=== PATIENT | female | born 1940 | race Caucasian/White ===

== ENCOUNTER → 2017-01-21 | Outpatient (CLI) | payer OTHER | LOC: CIMAGING 14:39 | PROVIDERS: ATTEND Internal Medicine | DX: Z12.31 Encounter for screening mammogram for malignant neoplasm of breast (principal) | CPT/HCPCS: G0202 ==

== ENCOUNTER → 2017-06-25 | Outpatient (CLI) | payer OTHER | LOC: FIMAGING 14:33 | PROVIDERS: ATTEND Internal Medicine Rheumatology | DX: Z13.820 Encounter for screening for osteoporosis (principal); M85.80 Other specified disorders of bone density and structure, unspecified site; E07.9 Disorder of thyroid, unspecified ==

== ENCOUNTER → 2018-01-22 | Outpatient (CLI) | payer OTHER | LOC: CIMAGING 14:06 | PROVIDERS: ATTEND Internal Medicine | DX: Z12.31 Encounter for screening mammogram for malignant neoplasm of breast (principal); Z80.3 Family history of malignant neoplasm of breast ==

== ENCOUNTER → 2018-03-09 | Outpatient (CLI) | payer OTHER | LOC: CIMAGING 17:14 | PROVIDERS: ATTEND Internal Medicine | DX: E07.9 Disorder of thyroid, unspecified (principal) | CPT/HCPCS: 76536-PO ==

== ENCOUNTER → 2018-12-10 | Outpatient (CLI) | payer OTHER | LOC: FIMAGING 17:29 | PROVIDERS: ATTEND Internal Medicine Pulmonary Disease | DX: J96.11 Chronic respiratory failure with hypoxia (principal) ==

== ENCOUNTER → 2019-01-24 | Outpatient (CLI) | payer OTHER | LOC: CIMAGING 14:13 | PROVIDERS: ATTEND Internal Medicine | DX: Z12.31 Encounter for screening mammogram for malignant neoplasm of breast (principal) ==

== ENCOUNTER 2019-02-13 12:50 | Inpatient (IN) | payer OTHER ==
--- NOTE | 2019-02-13 13:11 | EDPHY ---
H & P Time Seen by Provider: 02/13/19 13:04 HPI/ROS: Chief complaint. Fatigue, shortness of breath HPI. Patient is an 78-year-old female presents with increased cough and increased shortness of breath. She also tells me shows she is so weak she can' t hardly walk. Symptoms have been present for 3-4 days. She has chronic shortness of breath and normally has 94% saturation on 3 L but now has been running around 90% on her 3 L. Chronic cough but increasing cough. No abdominal pain vomiting or diarrhea. No fever. No chest pain. No urinary symptoms. 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 ROS 10 systems were reviewed and negative with the exception of the elements mentioned in the history of present illness Past Medical/Surgical History: COPD, DJD, hypothyroid, appendectomy, cholecystectomy, hysterectomy Social History: Single, nonsmoker, no alcohol Smoking Status: Former smoker Physical Exam: General Appearance: Alert well-developed female mild distress vital signs are stable. O2 saturation on 3 L 90% Eyes: Pupils equal and round no pallor or injection. ENT, Mouth: Mucous membranes are moist. Respiratory: There are no retractions, lungs are clear to auscultation. Questionable rales left lower lobe Cardiovascular: Regular rate and rhythm. Gastrointestinal: Abdomen is soft and nontender, no masses, bowel sounds normal. Neurological: Awake and alert, sensory and motor exams grossly normal. Skin: Warm and dry, no rashes. Musculoskeletal: Neck is supple nontender. Extremities symmetrical, full range of motion. Psychiatric: Patient is oriented X 3, there is no agitation. Constitutional: Initial Vital Signs Temperature (C) 36.6 C 02/13/19 12:55 Heart Rate 67 02/13/19 12:55 Respiratory Rate 22 H 02/13/19 12:55 Blood Pressure 133/58 H 02/13/19 12:55 O2 Sat (%) 90 L 02/13/19 12:55 O2 Delivery Mode Nasal Cannula O2 (L/minute) 3 Allergies/Adverse Reactions: cortisone [Cortisone] Allergy (Intermediate, Verified 02/13/19 12:59) prednisone [Prednisone] Allergy (Intermediate, Verified 02/13/19 12:59) codeine [Codeine] Allergy (Mild, Verified 02/13/19 12:59) meperidine HCl [From Demerol] Adverse Reaction (Intermediate, Verified 02/13/19 12:59) Vomiting TAPE Allergy (Intermediate, Uncoded 02/13/19 12:59) Home Medications: Medication Instructions Recorded Aspirin [Ecotrin] 325 mg PO HS 10/09/12 Ipratropium/Albuterol [Combivent 1 puffs IH DAILY PRN 10/09/12 Inhaler (RX)] Ipratropium/Albuterol [Duoneb (RX)] 3 ml IH Q3H 10/09/12 Omeprazole Magnesium [Prilosec Otc] 20 mg PO MOWEFR 10/09/12 Polyethylene Glycol 3350 [Miralax 17 gm PO HS 10/09/12 17 gm (OTC)] Simvastatin [Zocor 40 mg (RX)] 40 mg PO DAILY18 10/09/12 Tramadol HCl 50 mg PO HS 10/09/12 celeCOXIB [Celebrex (RX)] 200 mg PO DAILY 10/09/12 diphenhydrAMINE [Benadryl 25 MG 25 mg PO HS 10/09/12 (OTC)] Calcium Carb W/Vit D [Calcium Carb 500 mg PO TID 02/13/19 W/Vit D 500/200 (*)] Cholecalciferol Vit D3 [Vitamin D3 2,000 units PO DAILY@18 02/13/19 (*)] Furosemide [Lasix 40 MG (*)] 40 mg PO DAILY@17 02/13/19 Herbals/Supplements -Info Only 1 ea PO DAILY 02/13/19 Levothyroxine [Synthroid 50 mcg 50 mcg PO HS 02/13/19 (*)] Losartan Potassium [Cozaar 25 mg 25 mg PO DAILY 02/13/19 (*)] Melatonin [Melatonin 5 mg] 5 mg PO HS 02/13/19 Multivitamins [Multivitamin (*)] 1 each PO DAILY 02/13/19 [place]-3 Fatty Acids [Fish Oil 1000 1,000 mg PO BID 02/13/19 mg (*)] Potassium Citrate [Potassium 10 meq PO DAILY 02/13/19 Citrate ER] Medical Decision Making - Diagnostics EKG Interpretation: EKG interpreted by me shows normal sinus rhythm normal interval. Left axis deviation. Left bundle branch block. No significant ST elevation or depression. No arrhythmia. The rate is 68 Imaging Results: Imaging Impressions Chest X-Ray 02/13/19 13:22 Impression: New minimal left basilar atelectasis versus early pneumonia. Chest x-ray interpreted by me shows likely early left lower lobe pneumonia Procedures: Venous access was difficult. Multiple attempts and attempts with ultrasound. Patient eventually does get a PICC line for labs. Given normal saline Sepsis workup ED Course/Re-evaluation: Patient is given DuoNeb updraft. Patient remained stable. She and I discussed treatment plan including recommendation for admission. She expresses understanding and agreement I consulted discussed case with , hospitalist, who agrees to the admission Differential Diagnosis: She has evidence of pneumonia and urinary tract infection. Apparently patient' s calcium is quite elevated. This could represent occult cancer. Maybe the source of her weakness. No evidence for sepsis - Data Points Laboratory Results: 02/13/19 14:35 POC Troponin I 0.02 ng/mL ng/mL (0.00-0.08) Medications Given: Discontinued Medications Albuterol/Ipratropium (Duoneb) 3 ml IH EDNOW ONE Stop: 02/13/19 16:37 Last Admin: 02/13/19 16:57 Dose: Not Given Point of Care Test Results: Chemistry 02/13/19 14:35 POC Troponin I 0.02 ng/mL ng/mL (0.00-0.08) Departure - Departure Disposition: [facility] Inpatient Acute Clinical Impression: Pneumonia Qualifiers: Pneumonia type: due to unspecified organism Laterality: left Lung location: lower lobe of lung Qualified Code(s): J18.1 - Lobar pneumonia, unspecified organism UTI (urinary tract infection) Qualifiers: Urinary tract infection type: site unspecified Hematuria presence: without hematuria Qualified Code(s): N39.0 - Urinary tract infection, site not specified Condition: Good
--- NOTE | 2019-02-13 15:17 | CPEKG ---
Test Reason : OPEN Blood Pressure : / mmHG Vent. Rate : 068 BPM Atrial Rate : 000 BPM P-R Int : 196 ms QRS Dur : 120 ms QT Int : 394 ms P-R-T Axes : 000 020 050 degrees QTc Int : 420 ms Junctional rhythm Incomplete left bundle branch block Confirmed by Tamica Murray ([id number]) on 02/13/2019 3:16:52 PM Referred By: TAMICA MURRAY Confirmed By:Tamica Murray
[2019-02-13] MEDS ORDERED: IPRATROPIUM/ALBUTEROL 3 ML DEYVIAL IH ONE (16:36)
[2019-02-13] MEDS ORDERED: IOPAMIDOL (ISOVUE-300) 100 ML BTL ONE (18:33)
[2019-02-13 19:22] LABS: PLATELET COUNT 271 10^3/uL (150-400)
[2019-02-13 19:54] LABS: INR 0.97 (0.83-1.16); PROTIME(PATIENT) 12.5 SEC (12.0-15.0)
[2019-02-13] MEDS ORDERED: NS 1,000 ML IV ONE (20:23)
[2019-02-13] MEDS ORDERED: POLYETHYLENE GLYCOL 3350 17 GM PKT PO SCH (21:00)
[2019-02-13] MEDS ORDERED: traMADol 50 MG TAB PO PRN (21:48)
[2019-02-13] MEDS ORDERED: ONDANSETRON 4 MG/2 ML VIAL IVP PRN (21:48)
[2019-02-13] MEDS: HEPARIN 5,000 UNIT/0.5 ML INJ SC SCH (22:59)
[2019-02-13] MEDS: MELATONIN 3 MG TAB PO SCH (23:00)
[2019-02-13] MEDS: LEVOTHYROXINE 50 MCG TAB PO SCH (23:00)
[2019-02-13] MEDS ORDERED: ZOLEDRONIC ACID 4 MG in D5W 100 ML IV ONE (23:00)
[2019-02-13] MEDS: traMADol 50 MG TAB PO SCH (23:01)
[2019-02-13] MEDS: NS 1,000 ML IV SCH (23:03)
--- NOTE | 2019-02-13 23:07 | GHP ---
[f rep st] HISTORY AND PHYSICAL DATE OF ADMISSION: 02/13/2019 CHIEF COMPLAINT: Dizziness. HISTORY OF PRESENT ILLNESS: The patient is an 78-year-old female, who has gotten acutely weak in the last 3 to 4 days to the point where she can barely walk. She is very fatigued. She says she walks like she is drunk. She is shaky, having to hold onto the martinez. She is dizzy. She has lost weight; however, she says that is intentional. She has been trying to eat less. She had a virtual colonosc opy in 2013 that she said was okay, although she describes recently being diagnosed with a rectal tyra wth for which she has to take MiraLAX to keep her stools very loose around this small rectal opening. She does not know what the etiology is of the rectal growth and denies that it was never biopsied. She denies any abdominal pain. She has had a lower appetite than normal. She does drink 1 small gl ass of milk per day and does occasionally take Tums, although she denies that she takes them daily. In the emergency room, she was diagnosed with severe hypercalcemia with a calcium of 18.6. PAST MEDICAL HISTORY: 1. COPD on 3 L. 2. 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 3. Basal cell cancer of the nose. 4. Dilated cardiomyopathy. She follows with Dr. Rubalcava. PAST SURGICAL HISTORY: Appendectomy, cholecystectomy, hysterectomy, multiple breast biopsies that we re benign, back and knee surgeries. MEDICATIONS: Please see computerized record for a full detailed list. ALLERGIES: Prednisone. SOCIAL HISTORY: Quit smoking in 1988. She has not had any alcohol for the last 2 years. She thinks she might have been a little heavy of a drinker in the past, but really denied that she has ever had an alcohol problem. Lives with her daughter in her town home. REVIEW OF SYSTEMS: A complete review of systems was obtained and negative regarding constitutional, HEENT, GI, pulmonary, cardiovascular, , hematology, skin, musculoskeletal, endocrine, and psychiatr ic, except for positives and negatives as in HPI. FAMILY HISTORY: Reviewed, and noncontributory to presenting complaint. PHYSICAL EXAMINATION: GENERAL: Well-developed, well-nourished female, in no acute distress. VITAL SIGNS: Temperature is 36.6, pulse 67, respirations 22, blood pressure 133/58, saturating 90% o n 3 L. HEENT: Eyes: Normal conjunctivae. Pupils are equal, round and react to light. ENT: Normal ears a nd nose. Hearing intact. Normal lips and teeth. Oropharynx is moist. NECK: Trachea is midline. No thyromegaly. CHEST: Normal respiratory effort. Lungs are clear to auscultation bilaterally. CARDIOVASCULAR SYSTEM: Regular rate and rhythm. No murmur. No lower extremity edema. ABDOMEN: Soft, nontender. No hepatosplenomegaly. SKIN: Warm, dry, and intact without no rash. She does have a skin ulceration on her nose. MUSCULOSKELETAL: No cyanosis or clubbing. Strength is 5/5 upper and lower extremities. NEUROLOGIC: Cranial nerves are intact. Normal sensation to light touch. PSYCHIATRIC: She is alert and oriented x3. Normal mood and affect. Normal judgment and insight. N ormal memory. LABORATORY DATA: White count 8.09, hematocrit 32.6, platelets 271. Sodium 127, potassium 3.5, chlor christy 86, bicarb 37, BUN 41, creatinine 2.6, glucose 106. Lactate is 1.2. Calcium is 18.6. IMAGING DATA: EKG, viewed by me, my personal interpretation is normal sinus rhythm with an incomplet e bundle branch block. Chest x-ray is mostly unremarkable, maybe a little atelectasis in the left ba se. This case was discussed with Dr. Murray. There was a prolonged lag between decision for admission. When laboratory studies were available due to poor IV access, they put a PICC line in, in the emerge ncy room. ASSESSMENT AND PLAN: 1. Critical hypercalcemia. Differential diagnosis is hyperparathyroidism versus malignancy. We narendra l check a parathyroid hormone. We will check SPEP and UPEP. We will hydrate with IV fluids. We narendra l initiate her on subcutaneous calcitonin as well as giving her a dose of IV Zometa. We will hold al l of her oral and vitamin D calcium supplements. Review of old chart reveals her calcium was normal just 2 months ago. We will likely need to rule out malignancy, anticipating that her parathyroid hor ceci will be unrevealing. I think she needs a CT scan of her abdomen and pelvis as will be discussed below. Given her acute renal failure, however, we will see if this can be reversed as we would get a higher yield CT scan if we are able to give IV contrast. 2. Acute renal failure. We will hydrate her with IV fluids. I suspect this is due to hypercalcemia . We will check a renal ultrasound. We will hold her Celebrex, Lasix and losartan. 3. Mesenteric mass. In review of her old chart, I found a CT scan from 2015 that showed a mesenteri c mass, partially calcified, getting larger, with mesenteric lymph nodes. The patient denies knowled ge of this mass. Differential diagnosis at that time was carcinoid tumor versus lymphoma versus sarc oid versus sarcoma. As discussed above, especially given our current suspicion for hypercalcemia of malignancy, I think she needs a repeat CT scan of the abdomen and pelvis when her creatinine is impro kimberley. 4. Reported rectal growth. She says she takes MiraLAX to stool around a rectal mass, although she d enies that it was ever biopsied or if she knows what the growth consists of. For tonight, I will glory ck an abdominal x-ray to rule out obstruction. Once her electrolytes are a little more stable, recom mend CT scan of the abdomen and pelvis as above. 5. Chronic obstructive pulmonary disease with chronic respiratory failure. I believe she is at base line. 6. Dilated cardiomyopathy. I am giving fairly aggressive IV fluids for her hypercalcemia. We will need to watch her volume status closely. There are no echocardiograms currently in our system. We w ill check an echocardiogram. She follows with Dr. Rubalcava. 7. Cardiac or respiratory emergency status is full. 8. Admission status. We will admit to inpatient as she is medically complex and I anticipate greate r than 2 midnights. 9. Deep vein thrombosis prophylaxis. She is high risk. We will place her on subcutaneous heparin. /[id number]/MODL
[2019-02-13] MEDS: CALCITONIN 200 UNITS/ML SYR SC SCH (23:50)
[2019-02-13] MEDS: IPRATROPIUM/ALBUTEROL 3 ML DEYVIAL IH SCH (23:58)
[2019-02-14] MEDS: IPRATROPIUM/ALBUTEROL 3 ML DEYVIAL IH SCH ×8 (00:07→20:36)
[2019-02-14] MEDS: GUAIFENESIN/DM 10 ML UDCUP PO PRN ×2 (01:05→18:15)
[2019-02-14] MEDS: CEPACOL LOZENGE PO PRN (02:16)
[2019-02-14] MEDS: BENZONATATE 100 MG CAP PO PRN (02:16)
[2019-02-14] MEDS: IPRATROPIUM/ALBUTEROL 4GM MDI IH PRN ×3 (02:16→08:24)
[2019-02-14 05:24] LABS: PLATELET COUNT 249 10^3/uL (150-400)
[2019-02-14] MEDS: NS 1,000 ML IV SCH ×3 (06:02→18:17)
[2019-02-14] MEDS: HEPARIN 5,000 UNIT/0.5 ML INJ SC SCH ×3 (06:02→21:54)
[2019-02-14] MEDS ORDERED: POTASSIUM CL 20 MEQ TAB PO ONE (08:22)
--- NOTE | 2019-02-14 08:33 | HOSPPROG ---
Hospitalist Progress Note Assessment/Plan: 78 female presented with dizziness, dysequilibrium and fatigue, admitted with serum Ca >18. Hypercalcemia - concern for malignancy with low PTH and h/o mesenteric mass. She is s/p IV Zometa. Also receiving IVF's and calcitonin. -cont IVF's and calcitonin -recheck Ca this afternoon and in am GURU - likely 2/2 above - Cr trending down slightly with aggressive IVF's -cont IVF's -holding celebrex, lasix, losartan -renal u/s pending -repeat labs this afternoon Dilated cardiomyopathy - echo today to eval LV function as she is requiring aggressive IVF's for above issues Mesenteric mass - reviewed 12/2015 CT, which showed calcified mass, possibly carcinoid tumor, lymphoma (reported said "recurrent" but she denies h/o lymphoma ) or sarcoma. She says she talked to Dr. Scales about this in 2015 and surgical biopsy was deferred given her poor health. -CT abd/pelvis is recommended and would potentially proceed today without contrast to evaluate progression, but pt refuses imaging, see below -will readdress when Ca lower, mentation improved and renal function improved as ideally would get imaging with contrast COPD - stable, on 3 LPM baseline -cont home meds Hypokalemia - replace cautiously with elevated Cr Metabolic alkalosis Goals of care - discussed with pt that the hypercalcemia could be related to malignancy and re-imaging her abdomen is the next step. She repeatedly states "I don't want to do anything". She says she wouldn't want treatment even if she had cancer. She doesn't want to know what her imaging shows. She hopes her calcium will come down with "anti-calcium" meds. Regarding code status, she wants to stay full code, which isn't terribly consistent with her wishes to not have other w/u and treatment for possible malignancy. Will keep all this in mind, but would like to get her calcium down and readdress these issues as her cognitive function is likely affected by the hypercalcemia. Will continue the conversation when she feels better and calcium lower. Full code Dispo - cont inpt Subjective: Pt is tired, says she really doesn't feel any better despite Ca trending down. Still a little dizzy and weak. Denies CP. She is SOB at baseline with O2 dept COPD, but denies orthoponea or PND. Says she doesn't want further investigation of her hypercalcemia at this time. Objective: Vital Signs Temp Pulse Resp BP Pulse Ox 36.7 C 70 17 128/65 H 96 02/14/19 07:17 02/14/19 07:17 02/14/19 07:17 02/14/19 07:17 02/14/19 07:17 Laboratory Results 02/14/19 05:00 02/14/19 05:00 02/13/19 02/14/19 02/15/19 05:59 05:59 05:59 Intake Total 3600 Output Total 1300 Balance 2300 PT 12.5 SEC (12.0-15.0) 02/13/19 19:00 INR 0.97 (0.83-1.16) 02/13/19 19:00 - Physical Exam Constitutional: no apparent distress Eyes: PERRL Ears, Nose, Mouth, Throat: moist mucous membranes Cardiovascular: regular rate and rhythym Respiratory: no respiratory distress, clear to auscultation Gastrointestinal: normoactive bowel sounds, soft, non-tender abdomen Skin: warm Musculoskeletal: generalized weakness Neurologic: AAOx3 Psychiatric: interacting appropriately ICD10 Worksheet Patient Problems: Problems Problem Status Onset Pneumonia Acute UTI (urinary tract infection) Acute
[2019-02-14] MEDS: PANTOPRAZOLE SODIUM 40 MG TAB PO SCH (09:28)
[2019-02-14] MEDS: guaiFENesin 600 MG TAB.ER PO SCH ×3 (09:28→21:54)
--- NOTE | 2019-02-14 10:31 | PDMN ---
Medical Necessity Medical necessity: [facility] M326 Acute Renal Failure, 3 days: 78 yo w/ acute weakness , fatigue and dizziness. Eval reveals acute renal fx w/ critical hypercalcemia poss r/t hyperparathyroidism vs. malignancy. Pt has hx of mesenteric mass from 2016 scan concerning for malignancy w/ no f/u since. Ca+18.6, Na+127, Cr 2.6. PICC placement, IVF and calcitronin, serial labs. BC & urine cx pending. Repeat CT scan. Renal U/S. Echo. Anticipate>2MN for medical complexity. Meets [facility] IP criteria for ARF w/ clinically sig electrolyte abnormality, ongoing metabolic alkalosis and unstable and uncertain clinical situation (etiology unclear). Hx COPD on 3L, cardiomyopathy
[2019-02-14] MEDS: CALCITONIN 200 UNITS/ML SYR SC SCH ×2 (10:33→21:53)
--- NOTE | 2019-02-14 12:55 | ECHO ---
[email or web address] [address] [address] Main: [phone] Echocardiography Examination Transthoracic Name: CHRISTINA THOMAS MR#: [id number] Study Date: 02/14/2019 Study Time: 09:01 AM Date of : 1940 Age: 78 year(s) Height: 157.5 cm (62 in.) Weight: 64.41 kg (142 lb.) BSA: 1.65 m2 Gender: Female Examination: Echo Contrast: Image Quality: Rhythm: Normal sinus rhythm Heart Rate: 70 bpm BP: 117 mmHg/68 mmHg Indication: Pneumonia, Murmur Procedure Staff Referring Physician: Supervisor Porcelain Department: Andres Ledezma RDCS Reading Physician: Donaldo Lamas MD Requesting Provider: Ordering Physician: Leandra Sellers Indication: Pneumonia, Murmur Measurements Chambers AV/MV Label Value Normal Value Label Value Normal Value LVOT Vmax 0.8 m/s (0.7m/s - 1.1m/s) AV PGmax 31 mmHg LVOTd 1.9 cm (1.8cm - 2cm) AV PGmean 16 mmHg LVOT VTI 24.4 cm (18cm - 22cm) AV Vmax 2.77 m/s LVDd, 2D 3.9 cm (3.9cm - 5.3cm) ARNOLDO (Vmax) 0.8 cm2 LVDs, 2D 2.2 cm (2.1cm - 4cm) ARNOLDO (VTI) 1.1 cm2 IVSd, 2D 0.8 cm (0.6cm - 1.1cm) MV E Vmax 1.08 m/s LVPWd, 2D 1 cm MV A Vmax 1.18 m/s LVEF, 2D 75 % (54% - 74%) MV E/A 0.92 LVOT PGmean 1 mmHg MV E/E' lateral 19.1 LVOT Vmean 0.51 m/s MV E/E' septal 15.4 (0.45 - 1.25) RVDd, 2D 1.9 cm (1.9cm - 3.8cm) MV E' septal 0.07 m/s LA Volume, BP 54 ml (22ml - 52ml) MV E' lateral 0.06 m/s LADs, 2D 2.6 cm (2.7cm - 3.8cm) MV E/E' mean 16.62 LAESV index, BP 32.7 ml/m2 MV E' mean 0.06 m/s Additional Vessels TV/PV Label Value Normal Value Label Value Normal Value AoRoot, MM 3.2 cm (2.2cm - 3.7cm) PV PGmax 7 mmHg PV Vmax, Caliper 1.28 m/s (0.6m/s - 0.9m/s) Patient: CHRISTINA THOMAS Study Date: 02/14/2019 Page 1 of 2 09:01 AM Conclusions Left Ventricle: Normal global systolic left ventricular function. EF range is estimated at 65 % - 70 %. Right Ventricle: Right ventricular systolic function is normal. Mitral Valve: No mitral regurgitation. There is mild mitral thickening. Aortic Valve: There is mild aortic stenosis. Aortic leaflets exhibit moderate calcification. Findings Murmur due to mild aortic stenosis. Left Ventricle: Normal global systolic left ventricular function. EF range is estimated at 65 % - 70 %. Left ventricle wall thickness is normal. There are no regional wall motion abnormalities. Grade I Diastolic Dysfunction. Right Ventricle: Normal size right ventricle. Right ventricular systolic function is normal. Left Atrium: The left atrium is normal in size. Right Atrium: The right atrium is normal in size. Mitral Valve: No mitral regurgitation. No mitral valve stenosis. There is mild mitral calcification. There is mild mitral thickening. Aortic Valve: Trivial aortic regurgitation is present. There is mild aortic stenosis. Aortic leaflets exhibit moderate calcification. Tricuspid Valve: Tricuspid valve leaflets are structurally normal. No tricuspid regurgitation. Pulmonic Valve: Pulmonic leaflets are normal in appearance and function. No pulmonic valve regurgitation is evident. Aorta: The aorta is normal. The aortic root size in M-mode measures 3.2 cm. Aorta Measurements AoRoot, MM is 3.2 cm. Pericardium: No pericardial effusion. Exam Details Procedure Ordered: Echo (No Signature Object) Patient: CHRISTINA THOMAS Study Date: 02/14/2019 Page 2 of 2 09:01 AM [id number]
[2019-02-14] MEDS: NON-FORMULARY NEW DRUG (Tiotropium Br/Olodaterol Hcl [Stiolto Respimat Inhal Spray] 2 PUFF PO SCH (13:20)
--- NOTE | 2019-02-14 14:17 | ASMTCMCOM ---
CM Note CM Note Notes: Pt with co-morbidities including COPD, GURU, in with pneumonia. Pt calcium is high, pt does not want workup of this and she has a mesenteric mass, see MD note. The high calcium is causing pt to have some confusion. OT rec SNF, PT eval on hold while calcium high. CM to follow for d/c planning. D/c plan is TBD Date Signed: 02/14/2019 02:17 PM Electronically Signed By:BETO Felipe
[2019-02-14] MEDS: ALBUTEROL 60 PUFFS/8 GM MDI IH PRN (17:01)
[2019-02-14] MEDS ORDERED: POTASSIUM CL 20 MEQ/15 ML UDCUP PO ONE (17:16)
[2019-02-14] MEDS: ATORVASTATIN CALCIUM 20 MG TAB PO SCH (18:15)
[2019-02-14] MEDS: ASPIRIN EC 325 MG TAB PO SCH (21:52)
[2019-02-14] MEDS: diphenhydrAMINE 25 MG CAP PO SCH (21:54)
[2019-02-14] MEDS: LEVOTHYROXINE 50 MCG TAB PO SCH (21:54)
[2019-02-14] MEDS: MELATONIN 3 MG TAB PO SCH (21:55)
[2019-02-14] MEDS: traMADol 50 MG TAB PO SCH (21:56)
[2019-02-15] MEDS: ALBUTEROL 60 PUFFS/8 GM MDI IH PRN (00:19)
[2019-02-15] MEDS: NS 1,000 ML IV SCH ×4 (02:49→22:02)
[2019-02-15] MEDS: IPRATROPIUM/ALBUTEROL 3 ML DEYVIAL IH SCH ×4 (05:30→22:00)
[2019-02-15] MEDS: HEPARIN 5,000 UNIT/0.5 ML INJ SC SCH ×3 (05:41→21:00)
[2019-02-15] MEDS ORDERED: POTASSIUM CL 20 MEQ/15 ML UDCUP PO ONE (07:26)
[2019-02-15] MEDS: guaiFENesin 600 MG TAB.ER PO SCH ×2 (08:58→20:45)
[2019-02-15] MEDS: IPRATROPIUM/ALBUTEROL 4GM MDI IH PRN (09:26)
[2019-02-15] MEDS: ACETAMINOPHEN 325 MG TAB PO PRN ×2 (09:39→16:24)
[2019-02-15] MEDS: CALCITONIN 200 UNITS/ML SYR SC SCH (09:39)
--- NOTE | 2019-02-15 11:13 | ASMTCMCOM ---
CM Note CM Note Notes: Met with patient who is groggy. She tells me she lives at home and her daughter lives with her. OT recommending SNF and PT pending. CM to follow for needs. Plan: TBD Date Signed: 02/15/2019 11:13 AM Electronically Signed By:Jannie Casanova RN
--- NOTE | 2019-02-15 11:39 | HOSPPROG ---
Hospitalist Progress Note Assessment/Plan: 78 female presented with dizziness, dysequilibrium and fatigue, admitted with serum Ca >18. Hypercalcemia - concern for malignancy with low PTH and h/o mesenteric mass. She is s/p IV Zometa and 4 doses calcitonin. Ca 18.6 --> 12. -cont IVF's, will decrease rate a bit -cont to trend Ca GURU - likely 2/2 above - Cr slowly trending down with IVF's -cont IVF's, decrease rate to 100/hr -cont holding celebrex, lasix, losartan -renal u/s showed left kidney lesion, o/w unremarkable Left kidney lesion - will evaluate further with CT if pt agreeable Dilated cardiomyopathy - echo reviewed: nl EF, grade 1 diast dysfunction, mild -back off on IVF's to avoid volume overload Mesenteric mass - reviewed 12/2015 CT, which showed calcified mass, possibly carcinoid tumor, lymphoma (reported said "recurrent" but she denies h/o lymphoma ) or sarcoma. She says she talked to Dr. Scales about this in 2016 and surgical biopsy was deferred given her poor health. -CT abd/pelvis is recommended and would potentially proceed today without contrast to evaluate progression, but pt continues to refuse imaging -will readdress when Ca lower, mentation improved and renal function improved as ideally would get imaging with contrast COPD - remains on baseline O2 of 3 LPM, but increased wheezing noted today -discussed starting prednisone, but pt says she has reaction to prednisone and cannot take it -cont duonebs, prn albuterol nebs Hypokalemia - replace cautiously with elevated Cr Metabolic alkalosis Goals of care - readdressed goals of care with daughter Mariana at bedside who is MDPOA. Pt seems decisional, but also seems to have some denial and avoidance / anger. She continues to state she "doesn't want anything done". When I try to follow up with next steps in terms of goals of care re: code status and possibly considering hospice if she doesn't want treatment for potential cancer , she becomes flustered and says she doesn't want to talk about it. Says she wants to be resuscitated, though that is not consistent with her other wishes to defer further imaging and treatment. Daughter acknowledges that pt has stated in past she would not want to be kept alive on machines. Pt unable make decisions currently. She does agree to palliative care consult to assist with goals of care and to readdress code status. Additional 30 minutes at bedside addressing advanced care planning with pt and daughter. Full code Dispo - cont inpt Subjective: Pt doing ok, says not feeling much better, currently getting nebulizer. Denies significant pain. No CP. She is SOB and wheezing a bit this am. No fevers. Tremor persists, but improving. Continues to state she does not want anything done and refuses CT scan. Objective: Vital Signs Temp Pulse Resp BP Pulse Ox 37.3 C 78 18 148/67 H 100 02/15/19 07:45 02/15/19 07:45 02/15/19 07:45 02/15/19 07:45 02/15/19 07:45 Microbiology 02/15/19 01:00 Gastrointestinal Tract Panel (PCR) - Final Stool No Organism Detected By Pcr Laboratory Results 02/14/19 05:00 02/15/19 04:40 02/14/19 02/15/19 02/16/19 05:59 05:59 05:59 Intake Total 3600 5650 Output Total 1300 600 300 Balance 2300 5050 -300 PT 12.5 SEC (12.0-15.0) 02/13/19 19:00 INR 0.97 (0.83-1.16) 02/13/19 19:00 - Physical Exam Constitutional: no apparent distress Eyes: PERRL Ears, Nose, Mouth, Throat: moist mucous membranes Cardiovascular: regular rate and rhythym Respiratory: no respiratory distress, reduced air movement, expiratory wheeze Gastrointestinal: normoactive bowel sounds, soft, non-tender abdomen Skin: warm Musculoskeletal: full muscle strength Neurologic: AAOx3 Psychiatric: interacting appropriately, anxious, poor insight ICD10 Worksheet Patient Problems: Problems Problem Status Onset Pneumonia Acute UTI (urinary tract infection) Acute
[2019-02-15] MEDS: NON-FORMULARY NEW DRUG (Tiotropium Br/Olodaterol Hcl [Stiolto Respimat Inhal Spray] 2 PUFF PO SCH (12:11)
[2019-02-15] MEDS: traMADol 50 MG TAB PO PRN (13:41)
[2019-02-15] MEDS ORDERED: POTASSIUM CL 20 MEQ TAB PO ONE (16:09)
[2019-02-15] MEDS: ATORVASTATIN CALCIUM 20 MG TAB PO SCH (17:37)
[2019-02-15] MEDS: diphenhydrAMINE 25 MG CAP PO SCH (20:45)
[2019-02-15] MEDS: LEVOTHYROXINE 50 MCG TAB PO SCH (20:45)
[2019-02-15] MEDS: ASPIRIN EC 325 MG TAB PO SCH (20:45)
[2019-02-15] MEDS: traMADol 50 MG TAB PO SCH (20:46)
[2019-02-15] MEDS: MELATONIN 3 MG TAB PO SCH (20:46)
[2019-02-16] MEDS: IPRATROPIUM/ALBUTEROL 3 ML DEYVIAL IH SCH ×5 (03:19→20:30)
[2019-02-16] MEDS: ALTEPLASE 2 MG VIAL IVP PRN (04:51)
[2019-02-16] MEDS: HEPARIN 5,000 UNIT/0.5 ML INJ SC SCH ×3 (05:30→21:18)
--- NOTE | 2019-02-16 09:14 | HOSPPROG ---
Hospitalist Progress Note Assessment/Plan: 78 female presented with dizziness, dysequilibrium and fatigue, admitted with serum Ca >18. Hypercalcemia - concern for malignancy with low PTH and h/o mesenteric mass. She is s/p IV Zometa and 4 doses calcitonin. Ca 18.6 --> 10. -cont IVF's, will decrease rate -cont to trend Ca -CT abd/pelvis today as below GURU - likely 2/2 above - Cr 2.6 on arrival, down to 2.1 with IVF's, now trending back up to 2.3. Lytes ok. U/S without obstruction, though kidney lesion noted -check urine Na, urine Cr to calculate FeNa -cont IVF's, decrease rate to 75/hr -cont holding celebrex, lasix, losartan -renal consult requested Left kidney lesion - will evaluate further with CT Dilated cardiomyopathy - echo reviewed: nl EF, grade 1 diast dysfunction, mild -back off on IVF's to avoid volume overload Mesenteric mass - reviewed 12/2015 CT, which showed calcified mass, possibly carcinoid tumor, lymphoma or sarcoma. She says she talked to Dr. Scales about this in 2016 and surgical biopsy was deferred given her poor health. -Pt now agrees to CT, will obtain without contrast due to elevated Cr COPD - remains on baseline O2 of 3 LPM, no e/o exacerbation -cont duonebs, prn albuterol nebs Hypokalemia - better, replace cautiously with elevated Cr Metabolic alkalosis - resolved Goals of care - the past 2 days, pt has been firm that she doesn't want anything done, refusing CT imaging and stating she would not want treatment even if she had cancer. Now that her Ca has normalized, she is more open to discussion about further investigation and agrees to CT scan to evaluate mesenteric mass. Will start with imaging to determine if biopsy is possible and involve oncology if imaging raises more suspicion for malignancy. Palliative care consult today to assist with goals of care. Pt agreeable to this. Full code Dispo - cont inpt Subjective: Pt more friendly today, more open to discussion about imaging and next steps in determining if there is a malignancy. Her breathing is at baseline. Denies CP. No fevers/chills. A little pain in her abdomen. Objective: Vital Signs Temp Pulse Resp BP Pulse Ox 36.8 C 74 18 116/64 98 02/16/19 08:00 02/16/19 08:00 02/16/19 08:00 02/16/19 08:00 02/16/19 08:00 Microbiology 02/15/19 01:00 Gastrointestinal Tract Panel (PCR) - Final Stool No Organism Detected By Pcr Laboratory Results 02/14/19 05:00 02/16/19 04:43 02/15/19 02/16/19 02/17/19 05:59 05:59 05:59 Intake Total 5650 100 1000 Output Total 600 1050 Balance 5050 -950 1000 PT 12.5 SEC (12.0-15.0) 02/13/19 19:00 INR 0.97 (0.83-1.16) 02/13/19 19:00 - Physical Exam Constitutional: no apparent distress Eyes: PERRL Ears, Nose, Mouth, Throat: moist mucous membranes Cardiovascular: regular rate and rhythym Respiratory: no respiratory distress, reduced air movement, expiratory wheeze Gastrointestinal: normoactive bowel sounds, soft, non-tender abdomen Skin: warm Musculoskeletal: full muscle strength Neurologic: AAOx3 Psychiatric: interacting appropriately ICD10 Worksheet Patient Problems: Problems Problem Status Onset Pneumonia Acute UTI (urinary tract infection) Acute
[2019-02-16] MEDS ORDERED: POTASSIUM CL 20 MEQ TAB PO ONE (09:18)
[2019-02-16] MEDS: PANTOPRAZOLE SODIUM 40 MG TAB PO SCH (10:16)
[2019-02-16] MEDS: guaiFENesin 600 MG TAB.ER PO SCH ×2 (10:17→21:19)
[2019-02-16] MEDS: NON-FORMULARY NEW DRUG (Tiotropium Br/Olodaterol Hcl [Stiolto Respimat Inhal Spray] 2 PUFF PO SCH (10:31)
[2019-02-16] MEDS: IPRATROPIUM/ALBUTEROL 4GM MDI IH PRN ×2 (12:27→20:08)
[2019-02-16] MEDS: NS 1,000 ML IV SCH ×2 (16:32→23:06)
[2019-02-16] MEDS: ATORVASTATIN CALCIUM 20 MG TAB PO SCH (17:51)
--- NOTE | 2019-02-16 21:16 | GCON ---
[f rep st] CONSULTATION DATE OF CONSULTATION: 02/16/2019 REASON FOR CONSULTATION: Opinion regarding acute kidney injury. HISTORY OF PRESENT ILLNESS: The patient is a very pleasant 78-year-old female with known stage 3 chr onic kidney disease with baseline serum creatinine between 1.5 and 1.6 dating back a couple of years. She also has a known abdominal/mesenteric mass that has been inoperable in the past. The patient s aid on Thursday she started feeling very "lousy with shaking and discoordination." [facility], and was noted to have acute kidney injury and markedly elevated seru m calcium at greater than 18. She was admitted to the hospital. Therapies were initiated, and over the course of the past 3 days, her serum creatinine has improved a bit, down to 2.3, but her calcium has now come back down to 10.3. She says she lives independently. She has not been having fevers, c hills, nausea, vomiting, chest pain, or shortness of breath. She does have a chronic cough with some sputum production. No hemoptysis, hematemesis, epistaxis. She did have some abdominal cramping. N o diarrhea, melena, hematochezia, blurry vision, double vision, headache, orthopnea, paroxysmal noctu rnal dyspnea, palpitations, or syncope. She does have chronic lower extremity edema. PAST MEDICAL HISTORY: Significant for: 1. Chronic kidney disease, stage 3, with a baseline creatinine between 1.5 and 1.6 dating back a cou ple of years. 2. COPD. 3. DJD. 4. Hypothyroidism. 5. Status post appendectomy. 6. Status post cholecystectomy. 7. Status post hysterectomy. ALLERGIES: To steroids, tape, Demerol, and codeine. CURRENT MEDICATIONS: Include: 1. Albuterol. 2. Combivent. 3. Aspirin 325 mg daily. 4. Lipitor 20 mg daily. 5. Heparin. 6. Protonix 40 mg on Thursday, Thursday, and Thursday. 7. Normal saline at 100 cc/hour. 8. Tramadol. 9. She was taking Celebrex 200 mg a day at home, as well as herbal supplements and losartan. FAMILY HISTORY: Negative for renal failure. SOCIAL HISTORY: She is . She has a daughter who lives with her. She quit smoking in 1988 w hen a carton of cigarettes went to 10 dollars. She does not use alcohol, IV or recreational drugs. 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 REVIEW OF SYSTEMS: A complete 12-point review of systems was performed with pertinent positives and negatives as per previous sections. PHYSICAL EXAMINATION: VITAL SIGNS: Temperature is 36.7 degrees, blood pressure 137/64, respirations 20, pulse 84. Urine output 1.1 L so far today. GENERAL: She is awake, alert, cooperative, anxious about her recent CT scan results, but in no acute distress. HEENT: Pupils are reactive to light. Extraocular movements are intact. Mucous membranes are moist. She does have a basal cell carcinoma on her nose. NECK: No lymphadenopathy or thyromegaly. HEART: Regular. The apex tends to be in he r epigastrium. She has a grade 1/6 systolic murmur. No rub. No S3. LUNGS: No rhonchi. She does have some end-expiratory wheezes. ABDOMEN: Bowel sounds are positive. Soft, nontender, nondistende d. No obvious organomegaly, masses, or bruits. EXTREMITIES: Positive for edema. No cyanosis or cl ubbing. NEUROLOGIC: No asterixis. SKIN: No unusual rashes or lesions other than the basal cell ca rcinoma on her nose. LYMPH: No palpable lymphadenopathy or lymphedema. MUSCULOSKELETAL: No effusi ons or tenderness. LABORATORY: WBC 8.8, hemoglobin 10.2, hematocrit 30, platelet count 249,000. Serum sodium 134, pota ssium 3.5, chloride 107, CO2 22, BUN 32, creatinine 2.3, glucose 82. Calcium 10.3, down from 12.1 ye sterday, 15.1 the day before, and 18.1 the day prior to that. SPEP is pending. PTH and PTH-related peptide are yet pending. Urine sodium was 53. Urine creatinine 20. Echocardiogram showed an ejection fraction of 65% to 70%. No left ventricular hypertrophy. No wall motion abnormalities. Renal ultrasound: Right kidney was 11 cm and left 8.7 cm. Urine culture is positive for Pseudomonas aeruginosa; however, it appears to be a contaminant. IMPRESSION AND PLAN: 1. Life-threatening hypercalcemia with a calcium of greater than 18 on admission, now back down to 1 0.3. 2. Acute kidney injury, likely due to acute tubular necrosis in conjunction with her hypercalcemia. 3. Serologic workup is underway. 4. CT scan of the abdomen and pelvis was done today without contrast. I suspect the mesenteric mass that was inoperable prior may be the culprit for her hypercalcemia. 5. Continue to follow her calcium levels. 6. Await other lab and x-ray data. 7. All questions were answered to the patient's satisfaction. Thank you for allowing me to participate in the care of your patient. If there are any questions, pl ease do not hesitate to contact us. We will be following along with you. /[id number]/MODL
[2019-02-16] MEDS: LEVOTHYROXINE 50 MCG TAB PO SCH (21:19)
[2019-02-16] MEDS: ASPIRIN EC 325 MG TAB PO SCH (21:19)
[2019-02-16] MEDS: MELATONIN 3 MG TAB PO SCH (21:19)
[2019-02-16] MEDS: diphenhydrAMINE 25 MG CAP PO SCH (21:20)
[2019-02-16] MEDS: traMADol 50 MG TAB PO SCH (21:20)
[2019-02-17] MEDS: LORazepam 2 MG/ML INJ IVP PRN (00:01)
[2019-02-17] MEDS: ALBUTEROL 60 PUFFS/8 GM MDI IH PRN (02:09)
[2019-02-17] MEDS: IPRATROPIUM/ALBUTEROL 4GM MDI IH PRN (04:53)
[2019-02-17] MEDS: ALTEPLASE 2 MG VIAL IVP PRN (05:01)
[2019-02-17] MEDS: ACETAMINOPHEN 325 MG TAB PO PRN ×2 (05:57→17:14)
[2019-02-17] MEDS: HEPARIN 5,000 UNIT/0.5 ML INJ SC SCH ×3 (05:57→21:56)
[2019-02-17] MEDS: IPRATROPIUM/ALBUTEROL 3 ML DEYVIAL IH SCH ×5 (06:02→22:35)
[2019-02-17] MEDS: CEPACOL LOZENGE PO PRN ×2 (06:33→09:25)
[2019-02-17] MEDS: AZITHROMYCIN IV 500 MG in NS 250 ML IV SCH (06:58)
[2019-02-17 07:04] LABS: PLATELET COUNT 209 10^3/uL (150-400)
[2019-02-17] MEDS: guaiFENesin 600 MG TAB.ER PO SCH ×2 (07:59→21:57)
[2019-02-17] MEDS: NON-FORMULARY NEW DRUG (Tiotropium Br/Olodaterol Hcl [Stiolto Respimat Inhal Spray] 2 PUFF PO SCH (08:22)
--- NOTE | 2019-02-17 10:07 | SOAPPROG ---
SOAP Progress Note Assessment/Plan: Assessment/Plan: 78 y/o F with a known h/o of a nonresectable mesenteric mass presented with hypercalcemia and GURU. Cr now stable around 2.2, with previous baseline 1.5-1.6 dating back a couple of years in addition to atrophic L kidney. Etiology likely pre-renal vs ATN 2/2 to elevated calciums and unclear how much more renal function will improve, however making good UO and considering palliative options. GURU on CKD -baseline Cr 1.5, stable at 2.2 today -no acute indication for HD -UA shows possible UTI -urine sodium pending -may consider lasix if UO drops and breathing declines -CT shows atrophic L kidney with mass unchanged from previous scan -avoid contrast, keep MAP>65 -continue to monitor HTN/vol -agree with holding fluids down given on echo -holding home antihypertensives -BP at goal Hypercalcemia -improved to <10mg/dL -possible lymphoma vs carcinoid -lab work-up pending Alkalosis -replete K+ -monitor bicarb Will continue to follow, please contact if ?'s. 02/17/19 11:26 Subjective: Patient agreed to palliative consult. Ended up getting CT. Making good UO yesterday. Very wheezy and SOB this am, respiratory therapy at bedside. Objective: Vital Signs Temp Pulse Resp BP Pulse Ox 36.9 C 84 18 135/80 H 90 L 02/17/19 08:00 02/17/19 09:51 02/17/19 08:00 02/17/19 09:51 02/17/19 09:51 Microbiology 02/13/19 18:05 Urine Culture - Final Urine,Catheterized Pseudomonas Aeruginosa One [place] Type Laboratory Results 02/17/19 06:40 02/17/19 06:40 02/16/19 02/17/19 02/18/19 05:59 05:59 05:59 Intake Total 100 1000 1765 Output Total 1050 2400 200 Balance -950 -1400 1565 PT 12.5 SEC (12.0-15.0) 02/13/19 19:00 INR 0.97 (0.83-1.16) 02/13/19 19:00 Physical Exam - Physical Exam General Appearance: WD/WN, alert, moderate distress EENT: PERRL/EOMI Neck: non-tender, full range of motion, supple Respiratory: chest non-tender, respiratory distress, accessory muscle use, decreased breath sounds, wheezing Cardiac/Chest: normal peripheral pulses, regular rate, rhythm Abdomen: normal bowel sounds, non-tender, soft Skin: normal color, warm/dry Neuro/Psych: no motor/sensory deficits, alert, normal mood/affect ICD10 Worksheet Patient Problems: Problems Problem Status Onset Pneumonia Acute UTI (urinary tract infection) Acute
[2019-02-17] MEDS: BENZONATATE 100 MG CAP PO PRN (12:46)
[2019-02-17] MEDS ORDERED: POTASSIUM CL 20 MEQ TAB PO ONE (13:12)
--- NOTE | 2019-02-17 13:13 | HOSPPROG ---
Hospitalist Progress Note Assessment/Plan: 78 female presented with dizziness, dysequilibrium and fatigue, admitted with serum Ca >18. Hypercalcemia - concern for malignancy with low PTH. It's unclear if the mesenteric mass is the source, could be another source of malignancy but pt is very adamant she doesn't want anything else done so will defer further workup. She is s/p IV Zometa and 4 doses calcitonin. Ca 18.6 --> 9.3. -dc ivf's -stop calcium supplement GURU - likely 2/2 above - Cr 2.6 on arrival, down to 2.2 with IVF's. FeNa 4.5% c /w ATN. U/S without obstruction. -cont holding celebrex, losartan -renal consult appreciated COPD - remains on baseline O2 of 3 LPM, but increased wheezing and WOB today, refuses steroids -cont duonebs, increase frequency to q4h while awake -prn albuterol nebs -will add roxanol for air hunger LLL PNA - seen on CT, PCT elevated -start Ceftriaxone/Azithromycin day 1 Mesenteric mass - no change from 12/2015 CT. Carcinoid tumors can be slow growing. She had a surgery consult in 2016 and opted to defer surgical intervention due to vascular involvement and underlying chronic CV and pulmonary issues. -she continues to not want treatment Dilated cardiomyopathy - echo reviewed: nl EF, grade 1 diast dysfunction, mild . Wt up 5 kg -stop IVF's and will give Lasix 40 mg IV now -resume home Lasix tomorrow morning Left kidney lesion - unchanged from prior scan Hypokalemia - better, replace cautiously with elevated Cr, check Mag (1.4, will replace) Metabolic alkalosis - resolved Goals of care - palliative care involved. Pt adamant she does not want any further investigation or treatment for possible malignancy. Wants to be left alone, but also says she wants to be resuscitated so goals are not consistent. Planning for outpt palliative at minimum. Full code Dispo - cont inpt, will need SNF, CM involved. Discharge possibly in 1-2 days depending on stabilization of respiratory status Subjective: Pt wheezing, SOB. No fevers/chills. Has a bit of a cough. Denies abdominal pain. Has had some loose stool. No N/V. Continues to say she doesn' t want anything done. Objective: Vital Signs Temp Pulse Resp BP Pulse Ox 36.6 C 81 19 135/80 H 93 02/17/19 12:00 02/17/19 12:00 02/17/19 12:00 02/17/19 12:00 02/17/19 12:00 Microbiology 02/13/19 18:05 Urine Culture - Final Urine,Catheterized Pseudomonas Aeruginosa One [place] Type Laboratory Results 02/17/19 06:40 02/17/19 06:40 02/16/19 02/17/19 02/18/19 05:59 05:59 05:59 Intake Total 100 1000 1765 Output Total 1050 2400 600 Balance -950 -1400 1165 PT 12.5 SEC (12.0-15.0) 02/13/19 19:00 INR 0.97 (0.83-1.16) 02/13/19 19:00 - Physical Exam Constitutional: no apparent distress Eyes: PERRL Ears, Nose, Mouth, Throat: moist mucous membranes Cardiovascular: regular rate and rhythym Respiratory: reduced air movement, expiratory wheeze, respiratory distress Gastrointestinal: normoactive bowel sounds, soft, non-tender abdomen Skin: warm Musculoskeletal: full muscle strength Neurologic: AAOx3 Psychiatric: interacting appropriately, anxious, poor insight ICD10 Worksheet Patient Problems: Problems Problem Status Onset Pneumonia Acute UTI (urinary tract infection) Acute
--- NOTE | 2019-02-17 13:44 | ASMTCMCOM ---
CM Note CM Note Notes: 02/17/2019 Case Management Note Met w/pt to discuss PT recommendations for SNF rehab. Daughter Mariana present [phone]. Pt agreeable to referrals to nearby SNF rehabs. Faxed referrals via all scripts. Requested liasons from facilities contracted with [employer] visit pt on site. Discussed benefits of Palliative Care. Pt in agreement. Notified [facility] palliative team. Case Management d/c poc: SNF rehab pending pt choice and insurance authorization. Case Management to follow. Date Signed: 02/17/2019 01:43 PM Electronically Signed By:Dinorah Devine RN
[2019-02-17] MEDS ORDERED: MAGNESIUM SULF 1 GM/DEXTROSE 100 ML IV ONE (13:51)
[2019-02-17] MEDS ORDERED: FUROSEMIDE 40 MG TAB PO SCH (14:00)
[2019-02-17] MEDS ORDERED: morphINE 10 MG/0.5 ML UDSYR PO PRN (14:03)
[2019-02-17] MEDS ORDERED: FUROSEMIDE 40 MG/4 ML VIAL IVP ONE (14:16)
[2019-02-17] MEDS ORDERED: POTASSIUM CL 20 MEQ TAB ONE (14:49)
[2019-02-17] MEDS: ATORVASTATIN CALCIUM 20 MG TAB PO SCH (17:05)
[2019-02-17] MEDS: traMADol 50 MG TAB PO PRN (18:34)
[2019-02-17] MEDS: MELATONIN 3 MG TAB PO SCH (21:57)
[2019-02-17] MEDS: LEVOTHYROXINE 50 MCG TAB PO SCH (21:57)
[2019-02-17] MEDS: traMADol 50 MG TAB PO SCH (21:57)
[2019-02-17] MEDS: ASPIRIN EC 325 MG TAB PO SCH (21:57)
[2019-02-17] MEDS: diphenhydrAMINE 25 MG CAP PO SCH (21:57)
[2019-02-18] MEDS: IPRATROPIUM/ALBUTEROL 3 ML DEYVIAL IH SCH ×6 (02:20→21:44)
[2019-02-18] MEDS: ACETAMINOPHEN 325 MG TAB PO PRN (04:02)
[2019-02-18] MEDS: HEPARIN 5,000 UNIT/0.5 ML INJ SC SCH ×3 (05:31→22:55)
[2019-02-18] MEDS: ALTEPLASE 2 MG VIAL IVP PRN ×2 (05:32→06:28)
[2019-02-18] MEDS: FUROSEMIDE 40 MG TAB PO SCH (08:29)
[2019-02-18] MEDS: guaiFENesin 600 MG TAB.ER PO SCH ×2 (08:29→20:48)
[2019-02-18] MEDS: PANTOPRAZOLE SODIUM 40 MG TAB PO SCH (08:29)
[2019-02-18] MEDS: NON-FORMULARY NEW DRUG (Tiotropium Br/Olodaterol Hcl [Stiolto Respimat Inhal Spray] 2 PUFF PO SCH (08:41)
[2019-02-18] MEDS: AZITHROMYCIN IV 500 MG in NS 250 ML IV SCH (08:57)
[2019-02-18] MEDS: traMADol 50 MG TAB PO PRN ×2 (09:09→14:52)
[2019-02-18] MEDS: BENZONATATE 100 MG CAP PO PRN ×2 (09:10→10:39)
--- NOTE | 2019-02-18 09:13 | HOSPPROG ---
Hospitalist Progress Note Assessment/Plan: Patient new to my care. Briefly, an 78 y/o F with CKD presents with severe hypercalcemia 18 #Hypercalcemia - concern for malignancy with low PTH. It's unclear if the mesenteric mass is the source, could be another source of malignancy but pt is very adamant she doesn't want anything else done so will defer further workup. -s/p IV Zometa and 4 doses calcitonin. Ca 18.6 --> 9.3. #GURU - likely 2/2 above - Cr 2.6-->2.2. FeNa 4.5% c/w ATN. U/S without obstruction. -cont holding celebrex, losartan -renal consult appreciated #COPD/Chronic hypoxemic resp failure: 3L oxygen BL. Nebs. Allergic to steroids #LLL PNA - seen on CT, PCT elevated -CAP coverage Day 12/07 abx #Mesenteric mass: unchanged since 12/2015. Carcinoid tumors can be slow growing. She had a surgery consult in 2015 and opted to defer surgical intervention due to vascular involvement and underlying chronic CV and pulmonary issues. -continues to not want treatment #Dilated cardiomyopathy - echo reviewed: nl EF, grade 1 diast dysfunction, mild . Wt up 5 kg -stop IVF's and will give Lasix 40 mg IV now -resume home Lasix #Left kidney lesion - unchanged from prior scan #Hypokalemia/hypomagnesium: replete #Metabolic alkalosis - resolved #Goals of care: she does not want malignancy evaluation. Wants to be left alone , but also says she wants to be resuscitated so goals are not consistent. -Palliative care involved #Disp: SNF recommended. Can likely DC in next 1-2 days Subjective: c/o cough Objective: Vital Signs Temp Pulse Resp BP Pulse Ox 36.8 C 83 16 139/84 H 100 02/18/19 08:00 02/18/19 08:00 02/18/19 08:00 02/18/19 08:00 02/18/19 08:00 Laboratory Results 02/17/19 06:40 02/17/19 06:40 02/17/19 02/18/19 02/19/19 05:59 05:59 05:59 Intake Total 1000 2014 Output Total 2400 1900 600 Balance -1400 115 -600 PT 12.5 SEC (12.0-15.0) 02/13/19 19:00 INR 0.97 (0.83-1.16) 02/13/19 19:00 - Time Spent With Patient Time Spent with Patient: greater than 35 minutes Time Spent with Patient: Greater than 35 minutes spent on this patients care, greater than 50% of time spent counseling, educating, and coordinating care regarding the above mentioned plan. - Physical Exam Constitutional: obese Eyes: PERRL Ears, Nose, Mouth, Throat: moist mucous membranes Cardiovascular: regular rate and rhythym Respiratory: no respiratory distress, No inspiratory crackles Gastrointestinal: normoactive bowel sounds Genitourinary: No virgen in urethra Skin: warm Musculoskeletal: full muscle strength Neurologic: AAOx3, CN II-XII Intact Psychiatric: interacting appropriately ICD10 Worksheet Patient Problems: Problems Problem Status Onset Pneumonia Acute UTI (urinary tract infection) Acute
[2019-02-18] MEDS: Tiotropium Br/Olodaterol Hcl [Stiolto Respimat Inhal Spray] 2 PUFF IH SCH (09:41)
[2019-02-18] MEDS: morphINE 10 MG/0.5 ML UDSYR PO PRN ×2 (10:40→18:23)
--- NOTE | 2019-02-18 12:22 | SOAPPROG ---
SOAP Progress Note Assessment/Plan: Assessment/Plan: 78 y/o F with a known h/o of a nonresectable mesenteric mass presented with hypercalcemia and GURU. GURU on CKD -baseline Cr 1.5, stable at 2.2 today -no acute indication for HD -24h urine for monoclonal protein ordered per primary team, will d/w nursing -getting treated for possible UTI -CT shows atrophic L kidney with mass unchanged from previous scan and likely Cr is baseline -avoid contrast, keep MAP>65 -continue to monitor HTN/vol -agree with holding fluids down given on echo -restarted lasix yesterday -BP at goal Hypercalcemia -improved s/p bisphosphonate and calcitonin -possible lymphoma vs carcinoid, however abdominal mass unchanged -PTH appropriately low, vitamin D >50 (hold supplement), vitamin D 1,25 pending and could consider bone scan if being aggressive with care Acidosis -monitor ABG prn given respiratory issues Will continue to follow, please contact if ?'s. 02/18/19 12:21 Subjective: Made good urine with lasix. Still some trouble breathing and a discrepancy in her goals of care. Objective: Vital Signs Temp Pulse Resp BP Pulse Ox 36.6 C 97 19 116/58 L 93 02/18/19 11:27 02/18/19 11:27 02/18/19 11:27 02/18/19 11:27 02/18/19 11:27 Microbiology 02/17/19 08:30 Respiratory Panel (PCR) - Final Nasal, Sinus - Other No Organism Detected By Pcr Laboratory Results 02/17/19 06:40 02/17/19 06:40 02/17/19 02/18/19 02/19/19 05:59 05:59 05:59 Intake Total 1000 2014 Output Total 2400 1900 600 Balance -1400 115 -600 PT 12.5 SEC (12.0-15.0) 02/13/19 19:00 INR 0.97 (0.83-1.16) 02/13/19 19:00 Physical Exam - Physical Exam General Appearance: alert, mild distress EENT: PERRL/EOMI Neck: non-tender, supple Respiratory: accessory muscle use, wheezing Cardiac/Chest: regular rate, rhythm, edema Abdomen: normal bowel sounds, non-tender, soft Skin: normal color, warm/dry Extremities: normal range of motion, non-tender Neuro/Psych: depressed affect ICD10 Worksheet Patient Problems: Problems Problem Status Onset Pneumonia Acute UTI (urinary tract infection) Acute
[2019-02-18] MEDS ORDERED: PROTOCOL MAGNESIUM 1 DOSE IV PRN (15:33)
--- NOTE | 2019-02-18 15:47 | ASMTCMCOM ---
CM Note CM Note Notes: Pts case discussed w/ Dr. Suresh. CM met w/ pt and her daughter Mariana. They have chosen [facility]. [facility] started getting auth. CM sent over updates. [facility] is unable to accept due to insurance not covering. Pts insurance is in network w/ [employer] [facility]. [place] [facility] [place] [facility] [place] CM to follow. Plan: [facility] w/ outpatient pal follow up Date Signed: 02/18/2019 02:17 PM Electronically Signed By:CORRINA Morales
[2019-02-18] MEDS: ATORVASTATIN CALCIUM 20 MG TAB PO SCH (18:24)
[2019-02-18] MEDS: LEVOTHYROXINE 50 MCG TAB PO SCH (20:47)
[2019-02-18] MEDS: traMADol 50 MG TAB PO SCH (20:47)
[2019-02-18] MEDS: MELATONIN 3 MG TAB PO SCH (20:48)
[2019-02-18] MEDS: diphenhydrAMINE 25 MG CAP PO SCH (20:48)
[2019-02-18] MEDS: ASPIRIN EC 325 MG TAB PO SCH (20:48)
[2019-02-19] MEDS: IPRATROPIUM/ALBUTEROL 3 ML DEYVIAL IH SCH ×7 (01:54→23:44)
[2019-02-19] MEDS: HEPARIN 5,000 UNIT/0.5 ML INJ SC SCH ×3 (06:09→22:23)
[2019-02-19] MEDS: guaiFENesin 600 MG TAB.ER PO SCH ×2 (08:55→20:35)
[2019-02-19] MEDS: FUROSEMIDE 40 MG TAB PO SCH (08:55)
[2019-02-19] MEDS: morphINE 10 MG/0.5 ML UDSYR PO PRN ×3 (08:55→23:38)
[2019-02-19] MEDS ORDERED: MAGNESIUM SULF 2 GM/WATER 50 ML IV ONE (09:05)
[2019-02-19] MEDS ORDERED: POTASSIUM CL 20 MEQ/15 ML UDCUP PO ONE (09:05)
[2019-02-19] MEDS ORDERED: PROTOCOL K PHOSPHATE 1 DOSE IV PRN (09:06)
--- NOTE | 2019-02-19 09:10 | HOSPPROG ---
Hospitalist Progress Note Assessment/Plan: #Hypercalcemia - concern for malignancy with low PTH. It's unclear if the mesenteric mass is the source, could be another source of malignancy but pt is very adamant she doesn't want anything else done so will defer further workup. -s/p IV Zometa and 4 doses calcitonin. Ca 18.6 --> 9.3. #GURU - likely 2/2 above - Cr 2.6-->2.3 FeNa 4.5% c/w ATN. U/S without obstruction. -cont holding celebrex, losartan -renal consult appreciated #COPD/Chronic hypoxemic resp failure: 3L oxygen BL. Nebs. Allergic to steroids #LLL PNA - seen on CT, PCT elevated -CAP coverage Day 01/04 abx #Mesenteric mass: unchanged since 12/2015. Carcinoid tumors can be slow growing. She had a surgery consult in 2015 and opted to defer surgical intervention due to vascular involvement and underlying chronic CV and pulmonary issues. -continues to not want treatment #Dilated cardiomyopathy - echo reviewed: nl EF, grade 1 diast dysfunction, mild . Wt up 5 kg -stop IVF's and will give Lasix 40 mg IV now -resume home Lasix #Left kidney lesion - unchanged from prior scan #Hypokalemia/hypomagnesium/hypophos: replete #Metabolic alkalosis - resolved #Mils aortic stenosis: caution with IVFs #Goals of care: she does not want malignancy evaluation. I had conversation today about PC/hospice, code status. I expressed concern that aggressive resuscitation would likely cause more harm than benefit and not in line with wishes stated above. She wants to think over. -Palliative care involved. #Disp: SNF recommended. Can DC when electrolytes improved Subjective: roxanol not helping dyspnea Objective: Vital Signs Temp Pulse Resp BP Pulse Ox 36.8 C 73 17 140/73 H 98 02/19/19 07:27 02/19/19 07:27 02/19/19 07:27 02/19/19 07:27 02/19/19 07:27 Microbiology 02/13/19 18:45 Blood Culture - Final Blood 02/13/19 19:00 Blood Culture - Final Blood 02/18/19 10:45 - Final Sputum, Expectorated 02/17/19 08:30 Respiratory Panel (PCR) - Final Nasal, Sinus - Other No Organism Detected By Pcr Laboratory Results 02/17/19 06:40 02/18/19 17:55 02/18/19 02/19/19 02/20/19 05:59 05:59 05:59 Intake Total 2014 1500 Output Total 0 2500 Balance 115 -1000 PT 12.5 SEC (12.0-15.0) 02/13/19 19:00 INR 0.97 (0.83-1.16) 02/13/19 19:00 - Time Spent With Patient Time Spent with Patient: greater than 35 minutes Time Spent with Patient: Greater than 35 minutes spent on this patients care, greater than 50% of time spent counseling, educating, and coordinating care regarding the above mentioned plan. - Physical Exam Constitutional: no apparent distress Ears, Nose, Mouth, Throat: moist mucous membranes Cardiovascular: regular rate and rhythym Respiratory: expiratory wheeze, No inspiratory crackles Gastrointestinal: normoactive bowel sounds, soft, non-tender abdomen Genitourinary: no bladder fullness Skin: warm Musculoskeletal: generalized weakness Neurologic: CN II-XII Intact Psychiatric: flat affect ICD10 Worksheet Patient Problems: Problems Problem Status Onset Pneumonia Acute UTI (urinary tract infection) Acute
--- NOTE | 2019-02-19 09:13 | SOAPPROG ---
SOAP Progress Note Assessment/Plan: Assessment/Plan: 78 y/o F with a known h/o of a nonresectable mesenteric mass presented with hypercalcemia and GURU. GURU on CKD -baseline Cr 1.5, new baseline likely 2.2mg/dL -no acute indication for HD -holding further work-up given goals of care -getting treated for possible UTI -CT shows atrophic L kidney with mass unchanged from previous scan and likely Cr is baseline -avoid contrast, keep MAP>65 -continue to monitor HTN/vol -BP's at goal -continue lasix for now -fluid restriction to 1.2L for hyponatremia, will monitor Hypercalcemia -improved s/p bisphosphonate and calcitonin, now low (corrects with albumin) -possible lymphoma vs carcinoid, however abdominal mass unchanged -PTH appropriately low, vitamin D >50 (hold supplement), vitamin D 1,25 pending and could consider bone scan if being aggressive with care Acidosis -monitor ABG prn given respiratory issues -bicarb improved today Hypokalemia -replete with Mg prn Will continue to follow, please contact if ?'s. 02/19/19 09:12 Subjective: Still depressed but breathing a little better today. Objective: Vital Signs Temp Pulse Resp BP Pulse Ox 36.8 C 73 17 140/73 H 98 02/19/19 07:27 02/19/19 07:27 02/19/19 07:27 02/19/19 07:27 02/19/19 07:27 Microbiology 02/13/19 18:45 Blood Culture - Final Blood 02/13/19 19:00 Blood Culture - Final Blood 02/18/19 10:45 - Final Sputum, Expectorated 02/17/19 08:30 Respiratory Panel (PCR) - Final Nasal, Sinus - Other No Organism Detected By Pcr Laboratory Results 02/17/19 06:40 02/18/19 17:55 02/18/19 02/19/19 02/20/19 05:59 05:59 05:59 Intake Total 2014 1500 Output Total 0 2500 Balance 115 -1000 PT 12.5 SEC (12.0-15.0) 02/13/19 19:00 INR 0.97 (0.83-1.16) 02/13/19 19:00 Physical Exam - Physical Exam General Appearance: WD/WN, no apparent distress EENT: PERRL/EOMI, TMs normal Neck: non-tender, full range of motion, supple Respiratory: decreased breath sounds, wheezing Cardiac/Chest: regular rate, rhythm, edema Abdomen: normal bowel sounds, non-tender, soft Skin: pallor Extremities: normal range of motion Neuro/Psych: depressed affect ICD10 Worksheet Patient Problems: Problems Problem Status Onset Pneumonia Acute UTI (urinary tract infection) Acute
[2019-02-19] MEDS: AZITHROMYCIN IV 500 MG in NS 250 ML IV SCH (09:56)
[2019-02-19] MEDS ORDERED: MAGNESIUM SULF 2 GM/WATER 50 ML BAG IV ONE (09:58)
[2019-02-19] MEDS: Tiotropium Br/Olodaterol Hcl [Stiolto Respimat Inhal Spray] 2 PUFF IH SCH (12:58)
--- NOTE | 2019-02-19 15:04 | ASMTCMCOM ---
CM Note CM Note Notes: [facility] is unable to accept pt as she lives out of their service area. D/C Plan: [facility], still looking for palliative Date Signed: 02/19/2019 03:03 PM Electronically Signed By:Farhene Fong
[2019-02-19] MEDS: ATORVASTATIN CALCIUM 20 MG TAB PO SCH (17:19)
[2019-02-19] MEDS: ASPIRIN EC 325 MG TAB PO SCH (20:35)
[2019-02-19] MEDS: LEVOTHYROXINE 50 MCG TAB PO SCH (20:35)
[2019-02-19] MEDS: MELATONIN 3 MG TAB PO SCH (20:36)
[2019-02-19] MEDS: traMADol 50 MG TAB PO SCH (20:36)
[2019-02-19] MEDS: diphenhydrAMINE 25 MG CAP PO SCH (20:36)
[2019-02-20] MEDS: IPRATROPIUM/ALBUTEROL 3 ML DEYVIAL IH SCH ×5 (03:38→20:12)
[2019-02-20] MEDS: HEPARIN 5,000 UNIT/0.5 ML INJ SC SCH ×3 (05:39→21:39)
[2019-02-20] MEDS: morphINE 10 MG/0.5 ML UDSYR PO PRN ×3 (06:04→17:39)
[2019-02-20] MEDS ORDERED: POTASSIUM CL 20 MEQ TAB PO ONE ×2 (06:51→20:00)
[2019-02-20] MEDS: guaiFENesin 600 MG TAB.ER PO SCH ×2 (09:24→21:32)
[2019-02-20] MEDS: ACETAMINOPHEN 325 MG TAB PO PRN (09:24)
[2019-02-20] MEDS: Tiotropium Br/Olodaterol Hcl [Stiolto Respimat Inhal Spray] 2 PUFF IH SCH (09:25)
[2019-02-20] MEDS: AZITHROMYCIN IV 500 MG in NS 250 ML IV SCH (10:40)
[2019-02-20] MEDS ORDERED: MAGNESIUM SULF 1 GM/DEXTROSE 100 ML IV ONE (11:50)
[2019-02-20] MEDS: FUROSEMIDE 40 MG TAB PO SCH (11:53)
--- NOTE | 2019-02-20 12:17 | ASMTCMCOM ---
CM Note CM Note Notes: CM sent a referral to [facility]. Therapy still pending. CM to follow. Plan: TBD Date Signed: 02/20/2019 12:17 PM Electronically Signed By:Kiara Mehta
--- NOTE | 2019-02-20 13:30 | SOAPPROG ---
SOAP Progress Note Assessment/Plan: Assessment/Plan: 78 y/o F with a known h/o of a nonresectable mesenteric mass presented with hypercalcemia and GURU. GURU on CKD -baseline Cr 1.5, new baseline likely 2.2 colon dialysi1 April. He is mg/dL -no acute indication for HD -holding further work-up given goals of care -CT shows atrophic L kidney with mass unchanged from previous scan and likely Cr is baseline -avoid contrast, keep MAP>65 -continue to monitor HTN/vol -BP's at goal -agree with holding diuretics given electrolyte issues -fluid restriction to 1.2L for hyponatremia, will monitor Hypercalcemia -improved s/p bisphosphonate and calcitonin, now low (recheck albumin) -possible lymphoma vs carcinoid, however abdominal mass unchanged -PTH appropriately low, vitamin D >50 (hold supplement), vitamin D 1,25 pending and could consider bone scan if being aggressive with care Hypokalemia -likely poor po -Mg repleted and s/p Kphos this am -wrote for another 40mg KCl this afternoon -repeat BMP this evening Will continue to follow, please contact if ?'s. #[phone] 02/20/19 13:27 Subjective: Patient not eating much. Still having SOB. Objective: Vital Signs Temp Pulse Resp BP Pulse Ox 36.7 C 93 20 118/71 90 L 02/20/19 11:53 02/20/19 12:02 02/20/19 12:02 02/20/19 11:53 02/20/19 12:02 Microbiology 02/18/19 10:45 - Final Sputum, Expectorated 02/13/19 18:45 Blood Culture - Final Blood 02/13/19 19:00 Blood Culture - Final Blood Laboratory Results 02/17/19 06:40 02/20/19 05:40 02/19/19 02/20/19 02/21/19 05:59 05:59 05:59 Intake Total 1500 1200 350 Output Total 2500 2500 700 Balance -1000 -1300 -350 PT 12.5 SEC (12.0-15.0) 02/13/19 19:00 INR 0.97 (0.83-1.16) 02/13/19 19:00 Physical Exam - Physical Exam General Appearance: WD/WN, alert EENT: PERRL/EOMI Neck: non-tender, full range of motion, supple Respiratory: decreased breath sounds, crackles, wheezing Cardiac/Chest: normal peripheral pulses, regular rate, rhythm, edema Abdomen: normal bowel sounds, non-tender, soft Skin: pallor Extremities: pedal edema Neuro/Psych: depressed affect ICD10 Worksheet Patient Problems: Problems Problem Status Onset Pneumonia Acute UTI (urinary tract infection) Acute
--- NOTE | 2019-02-20 13:56 | HOSPPROG ---
Hospitalist Progress Note Assessment/Plan: #Hypercalcemia - concern for malignancy with low PTH. It's unclear if the mesenteric mass is the source, could be another source of malignancy but pt is very adamant she doesn't want anything else done so will defer further workup. -s/p IV Zometa and 4 doses calcitonin. Ca 18.6 --> 9.3. #GURU - improved. FeNa 4.5% c/w ATN. U/S without obstruction. -cont holding celebrex, losartan -renal consult appreciated #COPD/Chronic hypoxemic resp failure: 3L oxygen BL. Nebs. Rec steroids, but she declines to severe abd cramping -repeat CR #LLL PNA - seen on CT, PCT elevated -CAP coverage Day 02/04 abx #Mesenteric mass: unchanged since 12/2015. Carcinoid tumors can be slow growing. She had a surgery consult in 2015 and opted to defer surgical intervention due to vascular involvement and underlying chronic CV and pulmonary issues. -continues to not want treatment #Dilated cardiomyopathy - echo reviewed: nl EF, grade 1 diast dysfunction, mild . Wt up 5 kg -stop IVF's and will give Lasix 40 mg IV now -resume home Lasix #Left kidney lesion - unchanged from prior scan #Hypokalemia/hypomagnesium/hypophos: replete. Hold Lasix #Metabolic alkalosis - resolved #Mild aortic stenosis: caution with IVFs #Goals of care: met with patient and daughter today. Discussed goals: she wants to focus on comfort/quality. Completed MOST form, DNR. -PC will be very important for sx management when leaves hosp. Increase Roxanol frequency to q4h #Disp: SNF recommended. Can DC when electrolytes improved Time spent on Advanced Directives: 30 min completing MOST form and discussing goals (13:00-13:30) Subjective: "very hard time breathing today" Objective: Vital Signs Temp Pulse Resp BP Pulse Ox 36.7 C 93 20 118/71 90 L 02/20/19 11:53 02/20/19 12:02 02/20/19 12:02 02/20/19 11:53 02/20/19 12:02 Microbiology 02/18/19 10:45 - Final Sputum, Expectorated Laboratory Results 02/17/19 06:40 02/20/19 05:40 02/19/19 02/20/1902/21/19 05:59 05:59 05:59 Intake Total 1500 1200 840 Output Total 2500 2500 700 Balance -1000 -1300 140 PT 12.5 SEC (12.0-15.0) 02/13/19 19:00 INR 0.97 (0.83-1.16) 02/13/19 19:00 - Time Spent With Patient Time Spent with Patient: greater than 35 minutes Time Spent with Patient: Greater than 35 minutes spent on this patients care, greater than 50% of time spent counseling, educating, and coordinating care regarding the above mentioned plan. - Physical Exam Constitutional: uncomfortable Ears, Nose, Mouth, Throat: moist mucous membranes Respiratory: reduced air movement, expiratory wheeze, other (increased WOB, using accessory muscles) Gastrointestinal: normoactive bowel sounds Genitourinary: no bladder fullness Skin: warm Musculoskeletal: full muscle strength Neurologic: AAOx3 Psychiatric: interacting appropriately ICD10 Worksheet Patient Problems: Problems Problem Status Onset Pneumonia Acute UTI (urinary tract infection) Acute
[2019-02-20] MEDS: ATORVASTATIN CALCIUM 20 MG TAB PO SCH (17:05)
[2019-02-20] MEDS: ALBUTEROL 60 PUFFS/8 GM MDI IH PRN (18:25)
[2019-02-20] MEDS ORDERED: POTASSIUM CL 20 MEQ/15 ML UDCUP PO ONE (18:52)
[2019-02-20] MEDS: LORazepam 2 MG/ML INJ IVP PRN (20:27)
[2019-02-20] MEDS: diphenhydrAMINE 25 MG CAP PO SCH (21:30)
[2019-02-20] MEDS: LEVOTHYROXINE 50 MCG TAB PO SCH (21:30)
[2019-02-20] MEDS: traMADol 50 MG TAB PO SCH (21:31)
[2019-02-20] MEDS: MELATONIN 3 MG TAB PO SCH (21:31)
[2019-02-20] MEDS: ASPIRIN EC 325 MG TAB PO SCH (21:32)
[2019-02-21] MEDS: morphINE 10 MG/0.5 ML UDSYR PO PRN ×3 (00:16→19:59)
[2019-02-21] MEDS: IPRATROPIUM/ALBUTEROL 3 ML DEYVIAL IH SCH ×8 (00:19→23:38)
[2019-02-21] MEDS: HEPARIN 5,000 UNIT/0.5 ML INJ SC SCH ×3 (05:08→21:14)
[2019-02-21] MEDS ORDERED: POLYETHYLENE GLYCOL 3350 17 GM PKT PO PRN (06:27)
[2019-02-21] MEDS: guaiFENesin 600 MG TAB.ER PO SCH ×2 (08:49→20:33)
[2019-02-21] MEDS: PANTOPRAZOLE SODIUM 40 MG TAB PO SCH (08:49)
[2019-02-21] MEDS ORDERED: POTASSIUM CL 20 MEQ/15 ML UDCUP PO SCH (09:00)
[2019-02-21] MEDS: AZITHROMYCIN IV 500 MG in NS 250 ML IV SCH (09:39)
[2019-02-21] MEDS ORDERED: CALCIUM GLUCONATE 50 ML IV ONE (10:30)
[2019-02-21] MEDS: Tiotropium Br/Olodaterol Hcl [Stiolto Respimat Inhal Spray] 2 PUFF IH SCH (10:32)
--- NOTE | 2019-02-21 11:12 | SOAPPROG ---
SOAP Progress Note Assessment/Plan: Assessment/Plan: GURU on CKD 3: baseline Cr around 1.5, GURU likely due to hypercalcemia caused by volume depletion and vascular constriction. Would expect slow rate of recovery given her underlying CKD. Her Cr is improving, down to 1.9 today, nonoliguric, lytes ok. - No need for hD. - No need for further IVFs. - Will continue to monitor. - Avoid hypotension and nephrotoxins. Hypokalemia: K improved to 3.5, being replaced further today. - Will change daily replacement to 20meq daily. - Will continue to monitor. Hypophosphatemia: being replaced today, will continue to monitor. Hypervolemia: will restart Lasix today. Subjective: S: No acute events overnight. Pt notes that her breathing is difficult, but this is the same as always for her and not worse than usual. She is feeling swollen. Objective: Vital Signs Temp Pulse Resp BP Pulse Ox 36.6 C 92 18 126/72 H 95 02/21/19 08:00 02/21/19 08:05 02/21/19 08:05 02/21/19 08:00 02/21/19 08:05 Microbiology 02/18/19 10:45 - Final Sputum, Expectorated Laboratory Results 02/17/19 06:40 02/21/19 04:48 02/20/19 02/21/19 02/22/19 05:59 05:59 05:59 Intake Total 1200 1190 Output Total 2500 1950 300 Balance -1300 -760 -300 PT 12.5 SEC (12.0-15.0) 02/13/19 19:00 INR 0.97 (0.83-1.16) 02/13/19 19:00 General: alert and oriented, no acute distress Eyes: EOMI, PERRL OP: Clear CV: RRR Resp: slightly labored respirations on NC Abd: Soft, NT/ND Ext: +2 edema BLE Neuro: CN II-XII Grossly intact, no asterixis Psych: cooperative ICD10 Worksheet Patient Problems: Problems Problem Status Onset Pneumonia Acute UTI (urinary tract infection) Acute
[2019-02-21] MEDS ORDERED: K PHOS 10 MMOL in D5W 250 ML IV ONE (12:00)
[2019-02-21] MEDS: FUROSEMIDE 40 MG TAB PO SCH (12:21)
[2019-02-21] MEDS: ALBUTEROL 60 PUFFS/8 GM MDI IH PRN ×2 (14:15→19:46)
--- NOTE | 2019-02-21 14:57 | PDPCPN ---
Palliative Care Progress Note Assessment/Plan: Assessment:78 yo woman with hypercalcemia - presumed to be secondary to an unidentified malignancy. She has declined surgery or further evaluation. She also suffers from severe COPD and has a dilated cardiomyopathy. Plan: I attempted to meet with the patient today, but she was in respiratory distress. In addition, she was very reluctant to discuss the seriousness of her current medical condition She repeatedly said she "wanted to get better and go home." I share with her there was concern that she may not be able to get better. She reiterated, "I want to get better and go home." I asked if it would be ok if I called her daughter and she said yes. Her daughter lives with her and is her primary careers counsellor. I did mention, very briefly, that she could go home with hospice. She reiterated she wanted to get better first. I will call the daughter and try to arrange a meeting with her present for tomorrow. 02/21/19 14:51 Subjective: The patient reports her breathing is very difficult and has been for many years. She is clearly struggling to breathe. She has a strong cough. She denies that she has heard from any of her doctors how serious her current medical condition is. Her goal is to get stronger/better and go home. Objective: Vital Signs Temp Pulse Resp BP Pulse Ox 36.7 C 88 20 103/65 95 02/21/19 12:58 02/21/19 12:58 02/21/19 12:58 02/21/19 12:58 02/21/19 12:58 Microbiology 02/18/19 10:45 - Final Sputum, Expectorated Sputum Culture - Final Laboratory Results 02/17/19 06:40 02/21/19 04:48 02/20/19 02/21/19 02/22/19 05:59 05:59 05:59 Intake Total 1200 1190 340 Output Total 2500 1950 900 Balance -1300 -760 -560 PT 12.5 SEC (12.0-15.0) 02/13/19 19:00 INR 0.97 (0.83-1.16) 02/13/19 19:00 - Time Spent With Patient Time Spent With Patient: @25 minutes including a brief attempt at discussion and support while in breathing crisis and waiting for RT. ICD10 Worksheet Patient Problems: Problems Problem Status Onset Pneumonia Acute UTI (urinary tract infection) Acute
--- NOTE | 2019-02-21 15:45 | HOSPPROG ---
Hospitalist Progress Note Assessment/Plan: #GURU - improved. FeNa 4.5% c/w ATN. U/S without obstruction. -cont holding celebrex, losartan -renal consult appreciated -Cr 1.9 which may be new baseline #COPD/Chronic hypoxemic resp failure: 3L oxygen BL. Nebs. Rec steroids, but she declines to severe abd cramping -very symptomatic. Have discussed the severity of disease to she and daughter -Roxanol for breathlessness -[facility] to meet with them #Left PNA: completed 5 days abx #Mesenteric mass: unchanged since 12/2015. Carcinoid tumors can be slow growing. She had a surgery consult in 2015 and opted to defer surgical intervention due to vascular involvement and underlying chronic CV and pulmonary issues. -continues to not want treatment #Dilated cardiomyopathy - echo reviewed: nl EF, grade 1 diast dysfunction, mild . -restart Lasix today #Left kidney lesion - unchanged from prior scan #Hypokalemia/hypomagnesium/hypophos: replete. Hold Lasix #Metabolic alkalosis - resolved #Hypercalcemia - resolved. Concern for malignancy with low PTH. It's unclear if the mesenteric mass is the source, could be another source of malignancy but pt is very adamant she doesn't want anything else done so will defer further workup. #Mild aortic stenosis: caution with IVFs #Goals of care: I have met with patient and daughter. Explained severity of lung disease. Discussed goals: she wants to focus on comfort/quality. Completed MOST form, DNR in chart.PC will be very important for sx management when leaves hosp. Increase Roxanol frequency to q4h #Disp: plan to DC tomorrow if lytes stable Daughter bedside and questions answered Subjective: Roxanol seems to be helping Objective: Vital Signs Temp Pulse Resp BP Pulse Ox 36.7 C 88 20 103/65 95 02/21/19 12:58 02/21/19 12:58 02/21/19 12:58 02/21/19 12:58 02/21/19 12:58 Microbiology 02/18/19 10:45 - Final Sputum, Expectorated Sputum Culture - Final Laboratory Results 02/17/19 06:40 02/21/19 04:48 02/20/19 02/21/19 02/22/19 05:59 05:59 05:59 Intake Total 1200 1190 340 Output Total 2500 1950 900 Balance -1300 -760 -560 PT 12.5 SEC (12.0-15.0) 02/13/19 19:00 INR 0.97 (0.83-1.16) 02/13/19 19:00 - Time Spent With Patient Time Spent with Patient: greater than 35 minutes Time Spent with Patient: Greater than 35 minutes spent on this patients care, greater than 50% of time spent counseling, educating, and coordinating care regarding the above mentioned plan. - Physical Exam Constitutional: chronically ill appearing Eyes: PERRL Ears, Nose, Mouth, Throat: moist mucous membranes Cardiovascular: regular rate and rhythym Respiratory: reduced air movement, expiratory wheeze Gastrointestinal: normoactive bowel sounds Genitourinary: no bladder fullness Skin: warm Neurologic: CN II-XII Intact Psychiatric: poor insight, poor judgement, poor memory ICD10 Worksheet Patient Problems: Problems Problem Status Onset Pneumonia Acute UTI (urinary tract infection) Acute
[2019-02-21] MEDS: ATORVASTATIN CALCIUM 20 MG TAB PO SCH (18:35)
[2019-02-21] MEDS: diphenhydrAMINE 25 MG CAP PO SCH (20:33)
[2019-02-21] MEDS: MELATONIN 3 MG TAB PO SCH (20:33)
[2019-02-21] MEDS: LEVOTHYROXINE 50 MCG TAB PO SCH (20:33)
[2019-02-21] MEDS: ASPIRIN EC 325 MG TAB PO SCH (20:33)
[2019-02-21] MEDS: traMADol 50 MG TAB PO SCH (20:36)
[2019-02-21] MEDS: LORazepam 2 MG/ML INJ IVP PRN (21:14)
[2019-02-22] MEDS: IPRATROPIUM/ALBUTEROL 3 ML DEYVIAL IH SCH ×5 (04:43→22:16)
[2019-02-22] MEDS: HEPARIN 5,000 UNIT/0.5 ML INJ SC SCH ×3 (05:09→20:58)
[2019-02-22] MEDS ORDERED: MAGNESIUM SULF 1 GM/DEXTROSE 100 ML IV ONE (07:55)
[2019-02-22] MEDS: traMADol 50 MG TAB PO PRN (09:15)
[2019-02-22] MEDS: POTASSIUM CL 20 MEQ/15 ML UDCUP PO SCH (09:16)
[2019-02-22] MEDS: guaiFENesin 600 MG TAB.ER PO SCH ×2 (09:16→20:52)
[2019-02-22] MEDS: FUROSEMIDE 40 MG TAB PO SCH (09:16)
[2019-02-22] MEDS: BENZONATATE 100 MG CAP PO PRN (09:16)
--- NOTE | 2019-02-22 11:58 | SOAPPROG ---
SOAP Progress Note Assessment/Plan: Assessment/Plan: 78 y/o F with a known h/o of a nonresectable mesenteric mass presented with hypercalcemia and GURU. GURU on CKD -baseline Cr 1.5, now back down to 1.7 likely new baseline -no acute indication for HD -holding further work-up given goals of care, palliative meeting today -CT shows atrophic L kidney with mass unchanged from previous scan -will offer outpatient f/u to daughter after discharge -likely needs f/u labs as outpatient given electrolyte issues HTN/vol -BP's at goal -agree with lasix 40mg po daily Hypercalcemia -improved s/p bisphosphonate and calcitonin -possible lymphoma vs carcinoid, however abdominal mass unchanged -PTH appropriately low, vitamin D >50 (hold supplement), vitamin D 1,25 pending and could consider bone scan if being aggressive with care Hypokalemia -resolved Will sign off, please contact if ?s. 02/22/19 11:58 Subjective: Patient still confused about goals of care. Possible palliative meeting today prior to discharge. Objective: Vital Signs Temp Pulse Resp BP Pulse Ox 36.5 C 97 20 124/96 H 95 02/22/19 11:15 02/22/19 11:15 02/22/19 11:15 02/22/19 11:15 02/22/19 11:15 Microbiology 02/18/19 10:45 - Final Sputum, Expectorated Sputum Culture - Final Laboratory Results 02/17/19 06:40 02/22/19 05:00 02/21/19 02/22/19 02/23/19 05:59 05:59 05:59 Intake Total 1190 1540 300 Output Total 1950 3150 600 Balance -760 -1610 -300 PT 12.5 SEC (12.0-15.0) 02/13/19 19:00 INR 0.97 (0.83-1.16) 02/13/19 19:00 Physical Exam - Physical Exam General Appearance: WD/WN, other (depressed) EENT: PERRL/EOMI Neck: non-tender, supple Respiratory: decreased breath sounds, crackles Cardiac/Chest: regular rate, rhythm, edema Abdomen: normal bowel sounds, non-tender, soft Skin: pallor Extremities: normal range of motion, non-tender Neuro/Psych: depressed affect ICD10 Worksheet Patient Problems: Problems Problem Status Onset Pneumonia Acute UTI (urinary tract infection) Acute
[2019-02-22] MEDS: FAMOTIDINE 20 MG TAB PO SCH ×2 (12:31→20:52)
[2019-02-22] MEDS: predniSONE 20 MG TAB PO SCH (12:31)
--- NOTE | 2019-02-22 12:46 | PDIAF ---
- Diagnosis Diagnosis: Hypercalcemia Code Status: Do Not Resuscitate - Medication Management Discharge Medications: electronically signed and located in the Home Medication List. - Orders Services needed: Registered Nurse, Certified Senior Payroll Administrator, Master Mortgage Counselor , Physical Therapy, Occupational Therapy Isolation Type: None Diet Recommendation: no restrictions on diet Diet Texture: Regular Texture Diet Additional Instructions: Follow up 1. Nephrology 2. Dr. Vila 3. Dr. Fleming with [facility] - Labs/Radiology BMP Date: 02/24/19 - Follow Up Care Current Providers and Referrals: Katiuska Baptiste MD [Primary Care Provider] - As per Instructions Renny Vila MD [Medical Doctor] -
--- NOTE | 2019-02-22 13:02 | GDS ---
[f rep st] DISCHARGE SUMMARY DISCHARGE DIAGNOSES: 1. Acute kidney injury on chronic kidney disease. New baseline creatinine 1.7. 2. Mildly decompensated diastolic heart failure. 3. Hypercalcemia. 4. Atrophic left kidney with mass, unchanged from prior scan. 5. Possible lymphoma versus carcinoid with unchanged abdominal mass. 6. Hypokalemia. 7. End-stage chronic obstructive pulmonary disease. 8. Dyspnea. 9. Hypokalemia/hypophosphatemia. 10. Hypomagnesium. 11. Chronic hypoxemic respiratory failure on 3 L. 12. Left lower lobe pneumonia. 13. Metabolic alkalosis. 14. Mild aortic stenosis. CONSULTATIONS: Nephrology, Palliative Care. An 78-year-old female with end-stage COPD, CKD, history of calcified mesenteric mass, dilated cardiom yopathy, who presented with weakness to the point where she could not walk. She says she feels like she is drunk because she is so fatigued. Initial labs showed a critical calcium level of 18.6. HOSPITAL COURSE BY PROBLEM: 1. Severe hypercalcemia: Concern for lymphoma versus carcinoid given mesenteric abdominal mass. Ca lcium normalized with Zometa and calcitonin. The patient is clear in her wishes and does not want fu rther malignancy evaluation for mass. 2. GURU on CKD: Due to hypercalcemia caused by volume depletion and vascular constriction. Creatini ne today is 1.7, which is likely her new baseline. There was no indication for hemodialysis. Avoid hypotensive and nephrotoxins. 3. Hypokalemia/hypomagnesium/hypophosphatemia: These have been repleted. Continue daily potassium supplementation. 4. Mildly decompensated dilated cardiomyopathy: She was dosed IV Lasix once with improvement of sym ptoms. She may resume her home Lasix dose. 5. End-stage COPD: This appears to be her biggest issue at this time. She is very dyspneic. This has been chronic since per her daughter. She is followed by Dr. Vila, whom I spoke with. We bot h recommend steroids. However, she declined adamantly throughout the hospitalization due to the perez re abdominal cramps. She is agreeable today with the addition of famotidine. I scheduled low dose o f 20 mg for 5 days, which will hopefully help her symptoms. Continue home inhalers and nebulizers. 6. Left pneumonia, completed 5 days of antibiotics. 7. Mesenteric mass. This is unchanged since December 2015. Again, does not want further evaluation . 8. Left kidney mass is unchanged from prior scan. 9. Mild aortic stenosis. Caution with volume status. 10. Goals: I had several conversations with patient and her daughter. MOLST form was completed ref lecting a DNR. [facility] has been consulted and will follow patient once discharged, spec ifically for dyspnea and goal planning. Time spent on discharge greater than 30 minutes bedside, counseling patient on medications and coordi nating with case management. FOLLOWUP: 1. Dr. Vila of Pulmonology. 2. Dr. Fleming with [facility]. PHYSICAL EXAMINATION: VITAL SIGNS: Today, temperature 36.5 blood pressure is 124/96, heart rate 90s , respirations 20, 95% on 3 L. GENERAL: She is mildly uncomfortable. HEENT: PERRLA. Moist mucous membranes. CV: Wheezing. ABDOMEN: Soft, nontender and nondistended. Positive bowel sounds. : No Slater. MUSCULOSKELETAL: 5/5 upper and lower extremity strength. NEURO: Two through 12 intact . PSYCH: Alert and orient x3. Depressed, flat affect. /[id number]/MODL
[2019-02-22] MEDS: Tiotropium Br/Olodaterol Hcl [Stiolto Respimat Inhal Spray] 2 PUFF IH SCH (15:33)
[2019-02-22] MEDS: ALBUTEROL 60 PUFFS/8 GM MDI IH PRN ×2 (15:42→19:26)
--- NOTE | 2019-02-22 15:48 | HOSPPROG ---
Hospitalist Progress Note Assessment/Plan: Addendum: discharged canceled due to insurance authorization. Plan to DC tomorrow Objective: Vital Signs Temp Pulse Resp BP Pulse Ox 36.4 C 96 20 153/83 H 96 02/22/19 15:33 02/22/19 15:33 02/22/19 15:33 02/22/19 15:33 02/22/19 15:33 Microbiology 02/18/19 10:45 - Final Sputum, Expectorated Sputum Culture - Final Laboratory Results 02/17/19 06:40 02/22/19 05:00 02/21/19 02/22/19 02/23/19 05:59 05:59 05:59 Intake Total 1190 1540 800 Output Total 1950 3150 1100 Balance -760 -1610 -300 PT 12.5 SEC (12.0-15.0) 02/13/19 19:00 INR 0.97 (0.83-1.16) 02/13/19 19:00 ICD10 Worksheet Patient Problems: Problems Problem Status Onset Pneumonia Acute UTI (urinary tract infection) Acute
--- NOTE | 2019-02-22 16:16 | PDPCPN ---
Palliative Care Progress Note Assessment/Plan: Assessment: PALLIATIVE CARE NOTE Name: Jyotsna Santoro : 38 Age: 79 Classification: New Location: [facility] Date: 02/22/2019 PCP/Specialists: Dr Vila Pulmology Referral Source:[facility] DIAGNOSES: 1. COPD 2. Acute on chronic kidney disease 3. Hypercalcemia 4. Possible lymphoma versus carcinoid CC: Shortness of breath HPI: Ms. Santoro is an 78-year-old female with a history of COPD. She was recently admitted to the hospital with increasing fatigue weakness and difficulty walking. She was found to be markedly hypercalcemic of unknown origin. This has resolved with fluid as well as Zometa. She continues to have significant shortness of breath despite inhalers and nebulizers. We did discuss with the hospitalist morphine use and this will be ordered. She does not want to discuss her MOST form today and does not want to have any significant discussion regarding her continued care. PMH: As above Allergies: Cortisone, prednisone, codeine, Demerol, tape Family Hx: Social Hx: Previous smoker. She is currently living at home with her daughter. Advance Directives: Full Code MDPOA: 1)Daughter Flower Value Based Goals: 1. Decrease shortness of breath 2. Avoid hospitalizations MODIFIED [place] SYMPTOM ASSESSMENT SCALE 0-none; 1-3 mild; 4-6 moderate; 7-10 severe Unable to Respond: No Delirium: 0-none Depression: 0-none Anxiety: 3 Tiredness (fatigue): 3 Drowsiness (sleepiness): 0-none Pain: 0-none Nausea: 0-none Anorexia: 0-none Shortness of Breath: 6 Secretions: 0-none Constipation: 0-none ACTIVE SYMPTOMS/ASSESSMENT 1. COPD J 44.9: Continues to follow with pulmonology. She does not like steroids however these have been offered. She continues with inhalers and nebulizers with minimal improvement in her shortness of breath. 2. Shortness of breath R06.02: Her shortness of breath is significant with 4-5 words before needing to recover. We did discuss the use of morphine to help relieve some of her shortness of breath and this will be ordered 3. PPS: 60 FAST:Not applicable 4. Weight: 5. Decline:Significant decline over the last 2 years. Hospitalization for hypercalcemia of unknown origin. The abdominal mass has not changed since December 2015. 6. Collaboration:With hospitalist regarding morphine. 8. Prognosis: Months to years RECOMMENDATIONS:Recommend morphine use to lessen shortness of breath symptoms. Advance Care Planning the patient does not wish to discuss advanced directives at this time. She is open to having further discussion at a later date. PLAN: INSTALLATION SUPERVISOR: follow-up on outpatient basis Thank you for the opportunity to participate in the care of this patient. TIME SPENT: 7900-5680 45 minutes >50% of the time spent counseling, educating and coordinating the above topics. Lucian Borrego [facility] Plan: 02/22/19 16:16 Objective: Vital Signs Temp Pulse Resp BP Pulse Ox 36.4 C 96 20 153/83 H 96 02/22/19 15:33 02/22/19 15:33 02/22/19 15:33 02/22/19 15:33 02/22/19 15:33 Microbiology 02/18/19 10:45 - Final Sputum, Expectorated Sputum Culture - Final Laboratory Results 02/17/19 06:40 02/22/19 05:00 02/21/19 02/22/19 02/23/19 05:59 05:59 05:59 Intake Total 1190 1540 860 Output Total 1950 3150 1100 Balance -760 -1610 -240 PT 12.5 SEC (12.0-15.0) 02/13/19 19:00 INR 0.97 (0.83-1.16) 02/13/19 19:00 ICD10 Worksheet Patient Problems: Problems Problem Status Onset Pneumonia Acute UTI (urinary tract infection) Acute
--- NOTE | 2019-02-22 16:20 | ASMTCMCOM ---
CM Note CM Note Notes: [facility] is still in the process of getting insurance auth for patient. CM to contact [facility] (admissions [phone]) in the morning to see if they did get the auth. CM will follow. Date Signed: 02/22/2019 04:19 PM Electronically Signed By:Kylah Mendez LCSW
--- NOTE | 2019-02-22 17:13 | GCON ---
[f rep st] CONSULTATION PALLIATIVE MEDICINE CONSULT DATE OF CONSULTATION: 02/22/2019 CHIEF COMPLAINT: Dr. Lilia Suresh request goals of care conversation. HISTORY OF PRESENT ILLNESS: This is an 78-year-old woman who was admitted to the hospital on February 13, with reports of progressive weakness and fatigue. She was also very dizzy. She was found to have a calcium of 18.6. While this has been corrected, the etiology of her hypercalcemia is unclear. LABORATORY STUDIES: Ruled out hyperparathyroidism, as her intact parathyroid hormone was less than 3.48. Interestingly enough, her parathyroid hormone related peptide was also normal at 1.5. Her TSH was low at 0.070; however, her free T4 was normal at 1.01 and her free T3 was low at1.73. 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 Given its location and the surrounding vasculature, it was deemed too high risk to biopsy or remove. This mass was initially found in 2016. There was no change in this calcified central mesenteric mass noted on imaging study done at this admission ; however, its appearance was suggestive of a carcinoid tumor, sarcoma or possible other cancer. But given its stability, the possibility of sclerosing mesenteritis or mesenteric fibromatosis is also within the differential. She had mild pelvic ascites as well. Her hypercalcemia also resulted in acute kidney injury, which has resolved with both IV fluid resuscitation and correction of her calcium. Unfortunately, IV fluid resuscitation worsened her breathing, as she has bad COPD as well as a dilated cardiomyopathy with diastolic dysfunction and mild aortic stenosis. While in the hospital, the patient had extensive discussions with the hospitalist regarding her goals of care and has chosen to change her resuscitation preferences to do not attempt resuscitation. I attempted to meet with the patient on February 21, but she was having a breathing crisis and could not participate. I was able to meet with the patient and her daughter on today's date. In discussing goals of care, the patient reiterated to me what she had said yesterday, that she wants to get stronger and go home. At the same time, she also said, "I don't do well with PT." She does believe the morphine has helped her sensation of dyspnea, but she cannot say how much it has helped or how long the feeling lasts. She was finally agreeable to trying prednisone today, but has been reluctant because high doses cause her stomach pain and an overall bad reaction. She has tolerated her 1st dose so far without problems. She denies any current nausea or current pain. She does suffer from neuropathy. Her appetite is improving. The swelling she has had in her hands is improving as well. She is pursuing TENS therapy for her neuropathy at the [facility]. She had tried a cream on her feet at one time, she does not know what it was, but it did cause her to fall in the shower and, therefore, she is not interested in trying any other creams on her feet again. She denies any pruritus. I discussed with the patient and daughter her goals, and it is clear that she wishes to be at home. I asked them if they understand the potential ramifications of her high calcium level when she came in the hospital, and they feel that since it was corrected it is no longer an issue. The patient shares that she was taking 2 calcium tablets at home each day and she feels that was likely a contributing cause. REVIEW OF SYSTEMS: As indicated in the HPI and to include chronic dyspnea, chronic cough, and intermittent problems with constipation because of a chronic blockage in her colon that requires her to have stools smaller than a raisin to pass through this area. She uses MiraLAX daily for it. SOCIAL HISTORY: She quit smoking in 1988. She would want her daughter Flower as her decision maker should she be unable to make decisions for herself, and she confirms again that she does not wish for attempts at resuscitation. FAMILY HISTORY: Her mother of a brain hemorrhage at the age of 57 and her father of heart problems at the age of 66. PAST MEDICAL HISTORY: Includes: 1. COPD, chronically on 3 L/minute of oxygen. 2. Dilated cardiomyopathy with diastolic dysfunction. 3. Mild aortic stenosis. 4. Chronic kidney disease. 5. Basal cell cancer of the nose. 6. Intestinal problems including a mesenteric mass and problems with defecation related to what sounds like a stricture. She does state attempts have been made at colonoscopy and these have been unsuccessful. ALLERGIES: Steroids, codeine and meperidine, as well as tape. CURRENT MEDICATIONS: 1. Prednisone 20 mg p.o. daily. 2. Cepacol throat lozenges 1 every 2 hours as needed. 3. Ultram 50 mg at bedtime. 4. Ultram 50 mg daily as needed. 5. Tylenol 650 mg every 4 hours as needed. 6. Albuterol inhaler every 4 hours as needed. 7. Combivent every 6 hours as needed. 8. DuoNebs every 4 hours, scheduled. 9. Aspirin 325 mg at bedtime. 10. Lipitor 20 mg daily. 11. Tessalon Perles 100 mg 3 times daily as needed. 12. Benadryl 25 mg at bedtime. 13. Pepcid 20 mg p.o. twice daily. 14. Lasix 40 mg p.o. daily. 15. Mucinex 600 mg p.o. twice daily. 16. Robitussin dextromethorphan 10 cc every 4 hours as needed for moderate cough. 17. Heparin 5000 units subcutaneously every 8 hours. 18. Levothyroxine 50 mcg at bedtime. 19. Melatonin 4.5 mg at bedtime. 20. Spiriva 2 puffs daily. 21. Zofran 4 mg every 4 hours as needed. 22. Roxanol 2.5 mg every 4 hours as needed for dyspnea. 23. Protonix 40 mg p.o. daily on Thursday, Wednesdays and Fridays. 24. MiraLAX 17 g p.o. daily as needed. 25. Potassium 20 mEq p.o. daily. Of note, the patient did receive ceftriaxone and azithromycin for 5 days for treatment of presumed left lower lobe pneumonia. PHYSICAL EXAM: VITAL SIGNS: Shows a blood pressure of 153/83, a heart rate of 96, a respiratory rate of 20, she is currently saturating 96% on 3 L nasal cannula, and her temperature is 36.4 degrees Celsius. GENERAL: She appears chronically dyspneic with persistently labored breathing. She intermittently uses pursed lip breathing. However today, she is able to participate in the conversation and while she appears fatigued is able to answer questions and articulate her care preferences. HEENT: Hearing intact. No icterus. CARDIOVASCULAR: Distant but regular. She has +1 lower extremity edema bilaterally. She has intact radial pulses bilaterally. RESPIRATORY: Very minimal air movement; but at this time, no adventitious sounds are noted. SIGNIFICANT LABORATORY DATA: Her calcium on admission was 18.6 and it is now 7.7. Her albumin is 3.3. Her creatinine was 2.6 on admission and is now 1.7. Her white blood cell count is 9.95, her hemoglobin is 9, and her platelets are 209. CT scan of the abdomen and pelvis done on February 16, showed a stable calcified central mesenteric mass and an atrophic left kidney with mild pelvic ascites. Echocardiogram done on February 13, showed mild aortic stenosis and ejection fraction of 65% to 70%. ASSESSMENT AND PLAN: This is an 78-year-old woman with hypercalcemia of unclear etiology and severe chronic obstructive pulmonary disease. She suffers from persistent dyspnea. Her goals of care are quite clear. She wishes to return home. I discussed the differences between palliative care and hospice care. I shared that for people with serious illness who qualified for hospice, the decision to pursue palliative care was based on their desire to continue to pursue aggressive treatments including hospitalizations and aggressive physical therapy. Short-term physical therapy can be provided in hospice. The patient does have a strong preference to be at home. I encouraged her to consider her preferences for repeated hospitalization. At this time, she and her daughter wish to enroll in palliative care. I did explain that the support hospice providers through regular nurse visits and a triage line with a nurse available 25/05 and the possibility of home visits by a nurse in the middle of the night as well as HOUSE PIPING INSPECTOR support and durable medical equipment and provision of medicines , is present in hospice but not palliative care, they will continue to consider their options. In addition, I clarified that hospice is not a place people go to but is a service that is provided wherever the patient may live. Therefore, she can have hospice at home. The patient and daughter had the misunderstanding that hospice was a place you had to go to, which is one of the reasons they were leaning more towards palliative care.The daughter voiced support for enrolling in the palliative care program and encouraged her mother to sign the [facility] consent form for the program. The patient signed the consent with her daughter' s explanation of the benefits of signing. 1. Dyspnea. I encouraged the patient to continue her short-acting Roxanol. I discussed that some of our hospice patients are on long-acting morphine to give better, even control, throughout the day for their dyspnea. This could be an option down the road. I also advised her to be very careful of the potential for constipation, especially given her history of difficulty with defecation. I encouraged her to take her MiraLAX daily and not simply as needed, and that this may need to be titrated upwards. 2. True palliative care. Will follow up with the patient at the [facility] for ongoing discussion of her goals of care and to assess her progress with physical therapy. Please note that approximately 70 minutes have been spent in this consult including review of hospital records, direct patient assessment and documentation. Copy requested to: Dr Katiuska Baptiste Primary Care Provider /[id number]/MODL MTDD
[2019-02-22] MEDS: ATORVASTATIN CALCIUM 20 MG TAB PO SCH (18:41)
[2019-02-22] MEDS: morphINE 10 MG/0.5 ML UDSYR PO PRN (18:46)
[2019-02-22] MEDS: diphenhydrAMINE 25 MG CAP PO SCH (20:52)
[2019-02-22] MEDS: LEVOTHYROXINE 50 MCG TAB PO SCH (20:52)
[2019-02-22] MEDS: traMADol 50 MG TAB PO SCH (20:53)
[2019-02-22] MEDS: ASPIRIN EC 325 MG TAB PO SCH (20:53)
[2019-02-22] MEDS: MELATONIN 3 MG TAB PO SCH (20:53)
[2019-02-23] MEDS: IPRATROPIUM/ALBUTEROL 3 ML DEYVIAL IH SCH ×5 (03:17→15:34)
[2019-02-23] MEDS: HEPARIN 5,000 UNIT/0.5 ML INJ SC SCH ×2 (05:38→15:15)
[2019-02-23] MEDS ORDERED: MAGNESIUM SULF 1 GM/DEXTROSE 100 ML IV ONE (09:24)
[2019-02-23] MEDS: FUROSEMIDE 40 MG TAB PO SCH (09:57)
[2019-02-23] MEDS: guaiFENesin 600 MG TAB.ER PO SCH (09:57)
[2019-02-23] MEDS: PANTOPRAZOLE SODIUM 40 MG TAB PO SCH (09:57)
[2019-02-23] MEDS: predniSONE 20 MG TAB PO SCH (09:57)
[2019-02-23] MEDS: POTASSIUM CL 20 MEQ/15 ML UDCUP PO SCH (09:57)
[2019-02-23] MEDS: traMADol 50 MG TAB PO PRN (09:58)
[2019-02-23] MEDS: FAMOTIDINE 20 MG TAB PO SCH (09:58)
[2019-02-23] MEDS ORDERED: K PHOS 10 MMOL in D5W 250 ML IV ONE (12:00)
[2019-02-23] MEDS: Tiotropium Br/Olodaterol Hcl [Stiolto Respimat Inhal Spray] 2 PUFF IH SCH (13:35)
--- NOTE | 2019-02-23 14:20 | PDIAF ---
- Diagnosis Diagnosis: Hypercalcemia, COPD Code Status: Do Not Resuscitate - Medication Management Discharge Medications: electronically signed and located in the Home Medication List. - Orders Services needed: Registered Nurse, Certified College Intern, Master Traveling Construction Superintendent , Physical Therapy, Occupational Therapy Isolation Type: None Diet Recommendation: no restrictions on diet Diet Texture: Regular Texture Diet Additional Instructions: Follow up: 1. Nephrology 2. Dr. Vila 3. Dr. Fleming with [facility] - Labs/Radiology BMP Date: 02/25/19 - Follow Up Care Current Providers and Referrals: Renny Vila MD [Medical Doctor] - Katiuska Baptiste MD [Primary Care Provider] - As per Instructions
--- NOTE | 2019-02-23 14:43 | GDS ---
[f rep st] DISCHARGE SUMMARY Please see fully dictated discharge summary dated 02/22/2019 for full hospital course. Patient staye d overnight due to awaiting insurance authorization. There were no acute events overnight. Of note, her creatinine is improved to 1.5 today. She will followup with Nephrology, Pulmonology and Palliat melody Care. TIME SPENT ON DISCHARGE: Greater than 30 minutes coordinating with case management and speaking with patient and daughter. PHYSICAL EXAMINATION: VITAL SIGNS: Temperature 36.4, blood pressure 131/70, heart rate is in the 90 s, respirations 18, 95% on 3 L. GENERAL: She is in no acute distress. HEENT: PERRLA. Moist mucou s membranes. CV: Regular. Lower extremity edema is resolved. LUNGS: Diminished throughout. Expi ratory wheezing. ABDOMEN: Soft, nontender. : No Slater. PSYCH: Alert and oriented x3. Flat af fect. /[id number]/MODL
--- NOTE | 2019-02-23 14:57 | ASMTDCNOTE ---
Case Management Discharge Discharge Order Complete? Answers: Yes Patient to Obtain Answers: Other Notes: [facility] Transportation Arranged Answers: [facility] will Pick (Date 02/23/2019 04:45 PM & Time) Case Management Transport Answers: Yes Form Complete Faxed Final Orders Answers: Yes Agency/Facility Transfer Answers: Yes Report Printed & Faxed to Receiving Agency Discharge Comments Notes: D/w , final orders faxed. Luisa esparza notified, RN to call report. Date Signed: 02/23/2019 02:54 PM Electronically Signed By:Candy Kincaid RN
[2019-02-23 15:54] VITALS: BP 159/86
[2019-02-23] MEDS: morphINE 10 MG/0.5 ML UDSYR PO PRN (16:11)
--- NOTE | 2019-02-24 14:41 | ASDISCHSUM ---
Discharge Information Plan Status:SNF Medically Cleared to Leave: Discharge Date:02/23/2019 05:01 PM D/C [facility] AD[facility] D/C Disposition[facility] Projected Discharge Date:02/22/2019 11:00 AM Transportation at D/C:ALS/BLS Discharge Delay Reason: Follow-Up Date:02/22/2019 11:00 AM Discharge Slot: Final Diagnosis: Placement Information Referral Type:Palliative Care Referral ID:[id number] Provider [facility] Address 1:[address] [place] Address 2: City:[place] Selection Factors: State:[place] Referral Type:*Mcfp/SNF Referral ID:[id number] Provider Name:Geovanna Nuñez [facility] Address 1:[address] Phone Number: Address 2: Fax Number: [facility]:[place] Selection Factors: State:[place] Patient Contact Information Contact Name:KJ Relationship:Daughter Address:[address] [facility] City:[place] [facility] Phone: State/Zip Code:[place] [address] Email: Financial Information Financial Class:Medicare Advantage Plans Primary Plan Desc:SHERRIRomina [employer]ARA MEDICARE Primary Plan Number:[id number] Secondary Plan Desc: Secondary Plan Number: Assessment Information [facility] CM Progress Note CM Note CM Note Notes: Pt with co-morbidities including COPD, GURU, in with pneumonia. Pt calcium is high, pt does not want workup of this and she has a mesenteric mass, see note. The high calcium is causing pt to have some confusion. OT rec SNF, PT eval on hold while calcium high. CM to follow for d/c planning. D/c plan is TBD Date Signed: 02/14/2019 02:17 PM Electronically Signed By:BETO Felipe [facility] CM Progress Note CM Note CM Note Notes: Met with patient who is yordan. She tells me she lives at home and her daughter lives with her. OT recommending SNF and PT pending. CM to follow for needs. Plan: TBD Date Signed: 02/15/2019 11:13 AM Electronically Signed By:Jannie Casanova RN [facility] CM Progress Note CM Note CM Note Notes: 02/17/2019 Case Management Note Met w/pt to discuss PT recommendations for SNF rehab. Daughter Mariana present [phone]. Pt agreeable to referrals to nearby SNF rehabs. Faxed referrals via [employer]. Requested liasons from facilities contracted with [employer] visit pt on site. Discussed benefits of Palliative Care. Pt in agreement. Notified [facility] palliative team. Case Management d/c poc: SNF rehab pending pt choice and insurance authorization. Case Management to follow. Date Signed: 02/17/2019 01:43 PM Electronically Signed By:Dinorah Devine RN [facility] CM Progress Note CM Note CM Note Notes: Pts case discussed w/ Dr. Suresh. CM met w/ pt and her daughter Mariana. They have chosen [facility]. [facility] started getting auth. CM sent over updates. [facility] is unable to accept due to insurance not covering. Pts insurance is in network w/ [facility]. Referral sent to [facility]. CM to follow. Plan: [facility] SNF w/ outpatient pal follow up Date Signed: 02/18/2019 02:17 PM Electronically Signed By:CORRINA Morales [facility] CM Progress Note CM Note CM Note Notes: [facility] is unable to accept pt as she lives out of their service area. D/C Plan: [facility], still looking for palliative Date Signed: 02/19/2019 03:03 PM Electronically Signed By:Farheen Fong [facility] CM Progress Note CM Note CM Note Notes: CM sent a referral to [facility]. Therapy still pending. CM to follow. Plan: TBD Date Signed: 02/20/2019 12:17 PM Electronically Signed By:Kiara Mehta [facility] CM Progress Note CM Note CM Note Notes: [facility] is still in the process of getting insurance auth for patient. CM to contact [facility] (admissions [phone]) in the morning to see if they did get the auth. CM will follow. Date Signed: 02/22/2019 04:19 PM Electronically Signed By:Kylah Mendez LCSW Case Management Discharge Plan Note Case Management Discharge Discharge Order Complete? Answers: Yes Patient to Obtain Answers: Other Notes: [facility] Transportation Arranged Answers: [facility] will Pick (Date 02/23/2019 04:45 PM & Time) Case Management Transport Answers: Yes Form Complete Faxed Final Orders Answers: Yes Agency/Facility Transfer Answers: Yes Report Printed & Faxed to Receiving Agency Discharge Comments Notes: D/mega DANIEL, final orders faxed. Luisa esparza notified, RN to call report. Date Signed: 02/23/2019 02:54 PM Electronically Signed By:Candy Kincaid RN Intervention Information Intervention Type:*IM-Signed Date of Service:02/22/2019 11:31 AM Patient Type:Inpatient Staff Member:Gregoria Lenz Hours: Discipline: Severity: Comment:
== END 2019-02-23 17:01 | DRG 640 ==
LOC: F3N 20:53
PROVIDERS: ADMIT Internal Medicine; ATTEND Internal Medicine
PROC: 02H633Z Insertion of Infusion Device into Right Atrium, Percutaneous Approach (ICD-10-PCS; principal; 2019-02-13)
DX: E83.52 Hypercalcemia (principal); N17.9 Acute kidney failure, unspecified; J18.9 Pneumonia, unspecified organism; I50.33 Acute on chronic diastolic (congestive) heart failure; I13.0 Hypertensive heart and chronic kidney disease with heart failure and stage 1 through stage 4 chronic kidney disease, or unspecified chronic kidney disease; I42.0 Dilated cardiomyopathy; N18.3 Chronic kidney disease, stage 3 (moderate); J96.10 Chronic respiratory failure, unspecified whether with hypoxia or hypercapnia; Z99.81 Dependence on supplemental oxygen; E87.3 Alkalosis; E87.6 Hypokalemia; J44.9 Chronic obstructive pulmonary disease, unspecified; E03.9 Hypothyroidism, unspecified; R19.09 Other intra-abdominal and pelvic swelling, mass and lump; K62.9 Disease of anus and rectum, unspecified; E83.39 Other disorders of phosphorus metabolism; E83.42 Hypomagnesemia; I35.0 Nonrheumatic aortic (valve) stenosis; N26.1 Atrophy of kidney (terminal); Z66 Do not resuscitate; Z51.5 Encounter for palliative care
CPT/HCPCS: 82397-90; 82652-90; 84156-90; 84166-90; 84481-90; 84484-ER; 96365; 97162-GP; 97166-GO; 97530-GP; 97535-GO; C1751; J0456; J0610; J0630; J0696; J1644; J1940; J2060; J2997; J3475; J3489; J7512; Q9967